=== PATIENT | male | born 1985 | race Caucasian/White ===

== ENCOUNTER 2020-08-25 21:15 | Inpatient (IN) | payer SELFPAY ==
[2020-08-25 21:40] VITALS: BP 125/79; PULSE 72; RESP 14; TEMP 37.1; O2SAT 98; BMI 22.5
--- NOTE | 2020-08-25 21:56 | XR_ITS ---
EXAMINATION: XR CHEST CLINICAL INFORMATION: Bilateral frontal and lower rib pain. COMPARISON: Chest 04/16/2020 TECHNIQUE: Frontal view of the chest was obtained. FINDINGS: The lungs are well-expanded and clear of acute process. Heart size and pulmonary vascularity is normal. No gross bony abnormality seen. IMPRESSION: Unremarkable chest exam. No major change from 04/16/2020
--- NOTE | 2020-08-25 22:01 | ED.GENADULT ---
HPI - General Adult General Chief complaint: Arrhythmia/Palpitations Stated complaint: infection Time Seen by Provider: 08/25/20 21:30 Source: patient Mode of arrival: ambulatory Limitations: no limitations History of Present Illness HPI narrative: patient comes to the emergency room complaining of palpitations. Patient states it has been going on for several months now. Patient also complaining thoracic spine pain for approximately 2 weeks, gradually getting worse. Patient denies any trauma. patient states that 4 months ago patient was hospitalized for bacteremia, an abscess in his arm, patient left AMA. complaint: back pain, palpitations Onset (ago): week(s) Related Data Allergies Allergy/AdvReac Type Severity Reaction Status Date / Time No Known Allergies Allergy Verified 08/25/20 21:53 [No Known Allergies*] Review of Systems Review of Systems: Constitutional : No Weight loss, No Fever, No Chills, No Night Sweats, No Fatigue, No Malaise ENT/Mouth : No Hearing loss, No Ear Pain, No Nasal Congestion, No Sinus Pain, No Hoarseness, No sore throat, No Rhinorrhea, No Swallowing Difficulty Eyes: No Eye Pain, No Swelling, No Redness, No Foreign Body, No Discharge, No Vision Changes Cardiovascular : No Chest Pain, No SOB, No Dyspnea on Exertion, No Orthopnea, No Edema, complaining of intermittent palpitations Respiratory : No Cough, No Sputum, No Wheezing, No Smoke Exposure, No Dyspnea Gastrointestinal : No Nausea, No Vomiting, No Diarrhea, No Constipation, No abdominal Pain, No Hematochezia, No Melena Genitourinary : no irregular bleeding, No Dysuria, No Urinary Frequency, No Hematuria, No Urinary Incontinence, No Urgency, No Flank Pain, No Urinary Flow Changes, No Hesitancy Musculoskeletal : No joint pain, complaining of back pain, No Joint Swelling Skin : No Skin Lesions, No rash Neuro : No Weakness, No Numbness, No Paresthesias, No Loss of Consciousness, No Dizziness, No Headache Psych : No Anxiety/Panic, No Depression, No SI/HI/AH/VH, No Social Issues, Heme/Lymph: No Bruising, No Bleeding,No Lymphadenopathy Endocrine : No Polyuria, No Polydipsia, No Temperature Intolerance PMFSH Past Medical History Medical History Asthma Social History Social History Advance Directives: No Advance Directives Information Provided: No Physical Exam Vital Signs: Vital Signs: Vital Signs Temp Pulse Resp BP Pulse Ox 08/26/20 01:01 51 16 144/91 H 08/25/20 23:56 98.5 F 56 14 133/83 97 08/25/20 21:40 98.8 F 72 14 125/79 98 Body Mass Index 22.5 Appearance: Alert. Oriented X3. No acute distress. anxious, Disheveled Eyes: Pupils equal, round and reactive to light. ENT: Pharynx normal. Neck: Normal inspection. Neck supple. No lymph nodes noted. No crepitus CVS: Normal heart rate and rhythm. Pulses normal. Normal S1 and S2 Respiratory: No respiratory distress. Breath sounds normal. No Wheezing. No rales Abdomen: Soft and nontender. No rigidity. No distention. good BS x4 Skin: Skin warm and dry. Normal skin color. Normal skin turgor. Extremities: No lower extremity edema. No lower extremity edema. No Lacerations. No Rash Back: pain to palpation midline in the thoracic spine Neuro: Oriented X 3. No motor deficit. No sensory deficit. Moving all extermities. No slurred speech. Course Reevaluation(s) Reevaluation #1: patient sleeping, has had complain of pain until now. Medical Decision Making MDM Narrative Medical decision making narrative: I discussed with the patient that he may have diskitis versus osteomyelitis of the thoracic spine. Patient agrees to stay in the hospital. patient's white blood cell count and lactic acid within normal limits, patient is not febrile. At this time sepsis is not suspected EKG: Normal sinus rhythm, heart rate 63, QTC [address] segment elevation of 2 mm in V2 and V3 I discussed the patient with our hospitalist, patient will be admitted. Lab Data Result diagrams: 08/25/20 22:45 08/25/20 22:45 Labs: Lab Results 08/25/20 08/25/20 08/25/20 Range/Units 22:45 22:45 22:45 WBC 5.2 (4.8-10.8) X10*3/uL RBC 3.80 L (4.60-5.80) X10*6/uL Hgb 10.4 L (14.0-18.0) g/dl Hct 32.5 L (42-52) % MCV 85.5 (80-98) fL MCH 27.4 (27.0-33.0) pg MCHC 32.0 (31.0-36.0) g/dl RDW 13.6 (11.0-16.0) % Plt Count 173 (160-400) X10*3/uL MPV 10.3 (9.4-12.4) fL Immature Gran % (Auto) 0.2 (0.0-0.4) % Neut % (Auto) 36.8 L (45-73) % Lymph % (Auto) 46.1 H (20-40) % Slope % (Auto) 13.4 H (2-11) % Eos % (Auto) 3.1 (0-4) % Baso % (Auto) 0.4 (0-2) % Lymph # (Auto) 2.4 (1.2-4.9) X10*3/uL [place] # (Auto) 0.7 (0.1-1.2) X10*3/uL Eos # (Auto) 0.2 (0.0-0.4) X10*3/uL Baso # (Auto) 0.0 (0.0-0.2) X10*3/uL Abs Immat Gran (auto) 0.01 (0.00-0.03) X10*3/uL Absolute Neuts (auto) 1.9 L (2.0-8.3) X10*3/uL Absolute Nucleated RBC 0.000 (0.0-0.012) X10*3/uL Nucleated RBC % (auto) 0.0 (0.0-0.2) /100WBC D-Dimer NG/ML Sodium 141 (135-145) mmol/L Potassium 4.6 (3.3-5.1) mmol/l Chloride 105 (96-108) mmol/L Carbon Dioxide 30 H (22-29) mmol/L Anion Gap 11 L (12-20) BUN 15 (9-16) mg/dL Creatinine 0.82 (0.5-1.4) mg/dL Estim Creat Clear Calc 142.4 Estimated GFR > 60 Random Glucose 105 (60-115) mg/dL Lactic Acid 0.8 (0.5-2.0) mmol/L Calcium 8.4 (8.4-10.2) mg/dL Total Bilirubin 0.3 (0.0-1.0) mg/dL Direct Bilirubin 0.2 (0.0-0.5) mg/dL AST 26 (5-37) U/L ALT 23 (0-40) U/L Alkaline Phosphatase 51 (39-117) U/L Troponin I High Sens (<3.5-35.0) ng/L Total Protein 6.6 (6.5-8.0) g/dL Albumin 3.6 (3.5-5.0) g/dL Urine Opiates Screen (Not Detect) Ur Barbiturates Screen (Not Detect) Ur Phencyclidine Scrn (Not Detect) Ur Amphetamines Screen (Not Detect) U Benzodiazepines Scrn (Not Detect) Urine Cocaine Screen (Not Detect) U Marijuana (THC) Screen (Not Detect) 08/25/20 08/26/20 08/26/20 Range/Units 22:46 00:48 00:48 WBC (4.8-10.8) X10*3/uL RBC (4.60-5.80) X10*6/uL Hgb (14.0-18.0) g/dl Hct (42-52) % MCV (80-98) fL MCH (27.0-33.0) pg MCHC (31.0-36.0) g/dl RDW (11.0-16.0) % Plt Count (160-400) X10*3/uL MPV (9.4-12.4) fL Immature Gran % (Auto) (0.0-0.4) % Neut % (Auto) (45-73) % Lymph % (Auto) (20-40) % Slope % (Auto) (2-11) % Eos % (Auto) (0-4) % Baso % (Auto) (0-2) % Lymph # (Auto) (1.2-4.9) X10*3/uL Slope # (Auto) (0.1-1.2) X10*3/uL Eos # (Auto) (0.0-0.4) X10*3/uL Baso # (Auto) (0.0-0.2) X10*3/uL Abs Immat Gran (auto) (0.00-0.03) X10*3/uL Absolute Neuts (auto) (2.0-8.3) X10*3/uL Absolute Nucleated RBC (0.0-0.012) X10*3/uL Nucleated RBC % (auto) (0.0-0.2) /100WBC D-Dimer 469 NG/ML Sodium (135-145) mmol/L Potassium (3.3-5.1) mmol/l Chloride (96-108) mmol/L Carbon Dioxide (22-29) mmol/L Anion Gap (12-20) BUN (9-16) mg/dL Creatinine (0.5-1.4) mg/dL Estim Creat Clear Calc Estimated GFR Random Glucose (60-115) mg/dL Lactic Acid (0.5-2.0) mmol/L Calcium (8.4-10.2) mg/dL Total Bilirubin (0.0-1.0) mg/dL Direct Bilirubin (0.0-0.5) mg/dL AST (5-37) U/L ALT (0-40) U/L Alkaline Phosphatase (39-117) U/L Troponin I High Sens < 3.5 (<3.5-35.0) ng/L Total Protein (6.5-8.0) g/dL Albumin (3.5-5.0) g/dL Urine Opiates Screen POSITIVE H (Not Detect) Ur Barbiturates Screen Not Detected (Not Detect) Ur Phencyclidine Scrn Not Detected (Not Detect) Ur Amphetamines Screen Not Detected (Not Detect) U Benzodiazepines Scrn Not Detected (Not Detect) Urine Cocaine Screen POSITIVE H (Not Detect) U Marijuana (THC) Screen POSITIVE H (Not Detect) Imaging Data Chest x-ray and thoracic CT scan: Radiologist's impression: chest x-ray: Unremarkable exam CT thoracic spine with IV contrast: There is a rim of abnormal soft tissue density surrounding the T6 and T7 vertebral bodies favoring phlegm is change. Overall appearance is most suspicious for diskitis- osteomyelitis Discharge Plan Discharge Clinical Impression: Discitis of thoracic region Patient Disposition: Admitted As Inpatient
--- NOTE | 2020-08-25 22:02 | ECG_ITS ---
Test Reason : PALPITATIONS Blood Pressure : / mmHG Vent. Rate : 063 BPM Atrial Rate : 063 BPM P-R Int : 140 ms QRS Dur : 102 ms QT Int : 404 ms P-R-T Axes : 053 058 056 degrees QTc Int : 413 ms Normal sinus rhythm RSR' or QR pattern in V1 suggests right ventricular conduction delay Borderline ECG When compared with ECG of 16-APR-2020 15:46, No significant change was found Referred By: Kathi Escalona Electronically Signed By:EVELYN ASHLEY MD
[2020-08-25 22:58] LABS: MANUAL DIFF FLAG NO
[2020-08-25 23:00] LABS: Basophils Percent Auto 0.4 % (0-2); Eosinophils Absolute Auto 0.2 X10*3/uL (0.0-0.4); Eosinophils Percent Auto 3.1 % (0-4); Hematocrit 32.5 % (42-52); Hemoglobin 10.4 g/dl (14.0-18.0); Imm Gran Abs Auto 0.01 X10*3/uL (0.00-0.03); Imm Gran Pct Auto 0.2 % (0.0-0.4); Lymphocytes Absolute Auto 2.4 X10*3/uL (1.2-4.9); Lymphocytes Percent Auto 46.1 % (20-40); Mean Corpuscular Hemoglobin 27.4 pg (27.0-33.0); Mean Corpuscular Volume 85.5 fL (80-98); Mean Platelet Volume 10.3 fL (9.4-12.4); Monocytes Absolute Auto 0.7 X10*3/uL (0.1-1.2); Monocytes Percent Auto 13.4 % (2-11); Neutrophils Absolute Auto 1.9 X10*3/uL (2.0-8.3); Neutrophils Percent Auto 36.8 % (45-73); Platelet Count 173 X10*3/uL (160-400); Red Cell Distribution Width 13.6 % (11.0-16.0); White Blood Count 5.2 X10*3/uL (4.8-10.8)
[2020-08-25 23:17] LABS: Lactic Acid 0.8 mmol/L (0.5-2.0)
[2020-08-25 23:23] LABS: Alanine Aminotransferase 23 U/L (0-40); Albumin Level 3.6 g/dL (3.5-5.0); Alkaline Phosphatase 51 U/L (39-117); Anion Gap 11 (12-20); Aspartate Amino Transferase 26 U/L (5-37); Bilirubin Direct 0.2 mg/dL (0.0-0.5); Bilirubin Total 0.3 mg/dL (0.0-1.0); Blood Urea Nitrogen 15 mg/dL (9-16); Calcium 8.4 mg/dL (8.4-10.2); Carbon Dioxide 30 mmol/L (22-29); Chloride 105 mmol/L (96-108); Creatinine Clr Calc Pharmacy 142.4; Estimated Glomerular Filt Rate > 60; Glucose Random 105 mg/dL (60-115); Potassium 4.6 mmol/l (3.3-5.1); Sodium 141 mmol/L (135-145); Total Protein 6.6 g/dL (6.5-8.0)
[2020-08-25 23:29] LABS: Amphetamine Screen Urine Not Detected (Not Detect); Barbiturates, Urine Not Detected (Not Detect); Benzodiazepines Screen Urine Not Detected (Not Detect); Cannabinoid Screen Urine POSITIVE (Not Detect); Cocaine Screen Urine POSITIVE (Not Detect); Opiate Screen Urine POSITIVE (Not Detect); Phencyclidine Screen Urine Not Detected (Not Detect)
[2020-08-25 23:56] VITALS: BP 133/83; PULSE 56; RESP 14; TEMP 36.9; O2SAT 97
--- NOTE | 2020-08-26 | CT_ITS ---
EXAMINATION: CT THORACIC SPINE CLINICAL INFORMATION: Thoracic spine pain, no trauma, IV drug abuse COMPARISON: Chest x-ray 08/25/2020 TECHNIQUE: 85 mL Omnipaque 350 intravenous contrast was utilized. Multidetector helical imaging was performed through the thoracic spine. Coronal and sagittal reformatted images were created. This CT examination was performed using dose optimization techniques as appropriate, variously including the following: *Automated exposure control *Adjustment of mA and/or kV according to patient size (this includes techniques or standardized protocols for targeted exams where dose is matched to indication/reason for exam; i.e. extremities or head) *Use of iterative reconstruction technique DLP: 511 mGy-cm FINDINGS: There is erosion of the anterior superior endplate of T7 which extends into much of the anterior quarter of the vertebral body and also slightly erodes the left lateral margin. There is mild cortical irregularity of the adjacent inferior endplate of T6. The disc space at this level appears slightly collapsed, and there is a rim of abnormal soft tissue density surrounding the the T6-T7 vertebral bodies favoring phlegmonous change. Overall appearance is most suspicious for discitis-osteomyelitis. There is anatomic alignment of the thoracic vertebral bodies and posterior elements. Remaining vertebral body heights are maintained, with no acute fracture seen. Mild scattered endplate osteophytes are present. IMPRESSION: Findings most suspicious for discitis-osteomyelitis at T6-T7 as described above. Extent of this abnormality would be better evaluated with MRI.
--- NOTE | 2020-08-26 | CT_ITS ---
EXAMINATION: CT CHEST WITHOUT CONTRAST CLINICAL INFORMATION: History of IVDA. Pleuritic pain. Evaluate for septic pulmonary emboli. COMPARISON: Previous chest x-ray from yesterday CT of the thoracic spine from earlier the same day. TECHNIQUE: Multidetector volumetric CT imaging of the chest was done. Axial MIP volume rendering provided. Sagittal and coronal reformatted images were obtained. This CT examination was performed using dose optimization techniques as appropriate, variously including the following: *Automated exposure control *Adjustment of mA and/or kV according to patient size (this includes techniques or standardized protocols for targeted exams where dose is matched to indication/reason for exam; i.e. extremities or head) *Use of iterative reconstruction technique DLP: 154 mGy-cm FINDINGS: SURFACE HYDROLOGIST: Unremarkable LUNGS: The lungs are clear. No pulmonary nodule or airspace disease is seen. MEDIASTINUM: There are small mediastinal lymph nodes. No enlarged lymph nodes are seen. The heart does not appear enlarged. There is no pericardial effusion. The thoracic aorta is normal in caliber. PLEURA: There is no pleural effusion. There is a paravertebral or pleural thickening along the mid thoracic vertebral bodies, T6-T7 and T8. AXILLA: No chest wall mass or enlarged axillary lymph nodes are seen. UPPER ABDOMEN: There is excreted contrast seen in the renal collecting systems. OSSEOUS STRUCTURES: There is a lucency in the anterior superior endplate of the T7 vertebral body. Bony structures are otherwise unremarkable. IMPRESSION: The lungs are clear. No cavitary pulmonary nodules or evidence of pneumonia. Lucency in the anterior superior endplate of the T7 vertebral body and adjacent thickening of the paravertebral soft tissues. Findings are again suggestive of T7 osteomyelitis.
--- NOTE | 2020-08-26 | MR_ITS ---
EXAMINATION: MR THORACIC SPINE WITHOUT AND WITH CONTRAST CLINICAL INFORMATION: Back pain. History of IV drug use. Suspected thoracic spine osteomyelitis. COMPARISON: Previous CT of the thoracic spine from yesterday. TECHNIQUE: MRI of the thoracic spine was obtained using routine sequences with and without contrast. Intravenous contrast: Magnevist 7.5 mL. FINDINGS: Bone alignment is normal. No fracture or dislocation is seen. The thoracic cord is normal in signal. There is abnormal decreased signal on T1 and increased signal on T2-weighted sequences in the inferior T6 and superior T7 vertebral bodies adjacent to the T6-T7 disc space. This demonstrates enhancement post contrast and is suggestive of osteomyelitis. There is minimal abnormal signal in the left anterior T6-T7 disc space which demonstrates increased enhancement suggestive of mild T6-T7 discitis. There is minimal abnormal enhancement posterior to the T6-T7 disc space best appreciated on sagittal T1 postcontrast images. This measures 3 mm in AP dimension and 1 cm in longitudinal dimension sagittal T1 postcontrast image 6 series 8. This is suggestive of phlegmonous change. No definite epidural abscess is seen. There is slight increased paravertebral soft tissue enhancement seen adjacent to the T6 and T7 vertebral bodies, left greater than right, again probably representing phlegmonous change. No paraspinal abscess is seen. There is mild right paracentral disc bulge at T8-T9. No disc herniation is seen. IMPRESSION: T6-T7 discitis and osteomyelitis. Small area of abnormal enhancement posterior to the T6-T7 disc and along the paravertebral soft tissues at the T6 and T7 levels suggestive of phlegmonous change. No evidence of epidural or paraspinal abscess.
[2020-08-26] MEDS: iohexoL 350 MG/ML 100 ML INFUS..BTL 85 ML IV (00:33)
[2020-08-26] MEDS: Aspirin Enteric Coated 325 MG TABLET.DR PO (00:41)
[2020-08-26 01:01] VITALS: BP 144/91; PULSE 51; RESP 16
--- NOTE | 2020-08-26 01:09 | PC.NURSE ---
pt pacing around room at times, points to lower sternum and complaining of chest pain.
[2020-08-26 01:17] LABS: D Dimer 469 NG/ML
[2020-08-26 01:27] LABS: Troponin-I High Sensitivity < 3.5 ng/L (<3.5-35.0)
[2020-08-26] MEDS: Piperacillin Sodium/Tazobactam 3.375 GM in 0.9 % Sodium Chloride 50 ML IV ×4 (02:02→21:39)
[2020-08-26] MEDS: vancomycin HCL 1,000 MG in 0.9 % Sodium Chloride 250 ML 270 MG IV ×3 (02:34→21:03)
--- NOTE | 2020-08-26 02:56 | P.HPIM_ITS ---
History of Present Illness Date of Service: 08/26/20 Chief Complaint: back pain 35 y/o male with known hx of IVDA, Asthma and schizophrenia who presented from home due to back pain. Per patient's hx several months ago he was hospitalized due to right arm abscess with bacteremia but patient left AMA after 1-2 days been treated with antbx. Reports that 2 weeks ago started presenting with occaional episodes of chill and a constant mid back pain, sharp like, 10/10 in intensity, radiating to the chest, not associated with weakness, numbness, bladder or bowel incontinence. Patient has a significant hx of Marijuana abuse, Opiate abuse and Cocaine abuse, Last time of use was hrs before arrival. On evaluation in the ED on presentation patient was hemodynamially stable, c/o mid back discomfort. CT thoracic spine done showed suspected evidece of diskitis- osteomyelitis in T5-6 per radiology report recommending to obtain MRI for further evaluation. Patient was started on IV vanco and Zosyn for brodspectrum coverage. Decision for admission given. Patient seen and examined at the bedside, ROS as a above otherwise negative. Physical exam positive for mid back tenderness on palpation, no numbness or weakness on bilateral LE. PMHX: IV drug abuse, asthma, schizophrenia PSx: knee surgery Toxic habits: Multisubstance abuse, no hx of alcohol abuse or smoking tobacco Review of Systems Musculoskeletal: Musculoskeletal: Reports back pain PMFSH Medical History Asthma Functional capacity: independent ambulation Family history: reviewed and not pertinent Social History Advance Directives: No Advance Directives Information Provided: No Meds Allergies Allergy/AdvReac Type Severity Reaction Status Date / Time No Known Allergies Allergy Verified 08/25/20 21:53 [No Known Allergies*] Home Medications Medication Instructions Recorded Confirmed Type No Known Home Meds 08/26/20 08/26/20 History Physical Exam Vital Signs and Narrative: Vital Signs: Last Vital Signs Temp 98.5 F 08/25/20 23:56 Pulse 51 08/26/20 01:01 Resp 16 08/26/20 01:01 BP 144/91 H 08/26/20 01:01 Pulse Ox 97 08/25/20 23:56 Body Mass Index 22.5 Const: General: cooperative and other (in mild discomfort) Orientation/consciousness: patient oriented x3 HENMT: Head: Yes normal to inspection Eyes: General: appearance normal, both eyes and all related structures Neck: Yes normal visual inspection Chest: Chest palpation & inspection: normal inspection of the chest Resp: Effort & Inspection: normal respiratory effort Cardio: Jugular venous distension: no JVD Rate: regular rate Rhythm: regular rhythm Heart sounds: S1 normal heart sound present and S2 normal heart sound present GI: Inspection: Yes normal to inspection Back/Spine/Pelvis: Back: other (mid back tenderness on palpation ) Skin: General skin exam: no rashes or lesions noted Neuro: General: patient oriented x3 Motor exam (neuro): 5/5 motor strength present throughout Sensory Exam: other (sensation preserved) Extrem: Left upper extremity: normal to inspection Psych: Appearance: grossly normal Results Labs Labs: Laboratory Tests 08/25/20 08/25/20 08/25/20 22:45 22:45 22:45 WBC 5.2 RBC 3.80 L Hgb 10.4 L Hct 32.5 L MCV 85.5 MCH 27.4 MCHC 32.0 RDW 13.6 Plt Count 173 MPV 10.3 Immature Gran % (Auto) 0.2 Neut % (Auto) 36.8 L Lymph % (Auto) 46.[address] [place] % (Auto) 13.4 H Eos % (Auto) 3.1 Baso % (Auto) 0.4 Lymph # (Auto) 2.4 [place] # (Auto) 0.7 Eos # (Auto) 0.2 Baso # (Auto) 0.0 Abs Immat Gran (auto) 0.01 Absolute Neuts (auto) 1.9 L Absolute Nucleated RBC 0.000 Nucleated RBC % (auto) 0.0 D-Dimer Sodium 141 Potassium 4.6 Chloride 105 Carbon Dioxide 30 H Anion Gap 11 L BUN 15 Creatinine 0.82 Estim Creat Clear Calc 142.4 Estimated GFR > 60 Random Glucose 105 Lactic Acid 0.8 Calcium 8.4 Total Bilirubin 0.3 Direct Bilirubin 0.2 AST 26 ALT 23 Alkaline Phosphatase 51 Troponin I High Sens Total Protein 6.6 Albumin 3.6 Urine Opiates Screen Ur Barbiturates Screen Ur Phencyclidine Scrn Ur Amphetamines Screen U Benzodiazepines Scrn Urine Cocaine Screen U Marijuana (THC) Screen 10/08/26/20 08/26/20 22:46 00:48 00:48 WBC RBC Hgb Hct MCV MCH MCHC RDW Plt Count MPV Immature Gran % (Auto) Neut % (Auto) Lymph % (Auto) [place] % (Auto) Eos % (Auto) Baso % (Auto) Lymph # (Auto) [place] # (Auto) Eos # (Auto) Baso # (Auto) Abs Immat Gran (auto) Absolute Neuts (auto) Absolute Nucleated RBC Nucleated RBC % (auto) D-Dimer 469 Sodium Potassium Chloride Carbon Dioxide Anion Gap BUN Creatinine Estim Creat Clear Calc Estimated GFR Random Glucose Lactic Acid Calcium Total Bilirubin Direct Bilirubin AST ALT Alkaline Phosphatase Troponin I High Sens < 3.5 Total Protein Albumin Urine Opiates Screen POSITIVE H Ur Barbiturates Screen Not Detected Ur Phencyclidine Scrn Not Detected Ur Amphetamines Screen Not Detected U Benzodiazepines Scrn Not Detected Urine Cocaine Screen POSITIVE H U Marijuana (THC) Screen POSITIVE H Assessment and Plan (1) Osteomyelitis of thoracic spine: Status: Acute (2) IV drug abuse: Status: Acute CT thoracic spine concerning for discitis vs OM around T5-6 Follow up MRI in the am Follow up Bcx obtained in the ED Continue with IV Vanco and Zosyn for gram positive and gram negative coverage Follow up Vanco trough as ordered Pain control Follow up 2D echo Infectious disease consult in the am
[2020-08-26] MEDS: Ketorolac Tromethamine 15 MG/ML VIAL IVPUSH (03:36)
--- NOTE | 2020-08-26 03:37 | PC.NURSE ---
PT ABLE TO FALL ASLEEP. REPORT GIVEN TO RN ON FLOOR. READY FOR TRANSPORT.
[2020-08-26] MEDS: 0.9 % Sodium Chloride 1,000 ML 100 ML IVCONT ×2 (04:02→18:16)
[2020-08-26] MEDS: Heparin Sodium,Porcine 5,000 UNIT/ML VIAL 5000 UNIT SUBCUT (06:13)
[2020-08-26 06:43] LABS: SARS COV2 PCR INHOUSE NEGATIVE (Negative)
[2020-08-26 07:57] VITALS: BP 146/83; PULSE 53; RESP 16; TEMP 36.4; O2SAT 100
[2020-08-26 09:27] LABS: MANUAL DIFF FLAG NO
[2020-08-26 09:45] LABS: Basophils Percent Auto 0.2 % (0-2); Eosinophils Absolute Auto 0.1 X10*3/uL (0.0-0.4); Eosinophils Percent Auto 2.6 % (0-4); Hematocrit 36.9 % (42-52); Hemoglobin 11.6 g/dl (14.0-18.0); Imm Gran Abs Auto 0.01 X10*3/uL (0.00-0.03); Imm Gran Pct Auto 0.2 % (0.0-0.4); Lymphocytes Percent Auto 43.2 % (20-40); Mean Corpuscular HGB Conc 31.4 g/dl (31.0-36.0); Mean Corpuscular Hemoglobin 26.7 pg (27.0-33.0); Mean Corpuscular Volume 84.8 fL (80-98); Mean Platelet Volume 9.9 fL (9.4-12.4); Monocytes Absolute Auto 0.4 X10*3/uL (0.1-1.2); Monocytes Percent Auto 9.5 % (2-11); Neutrophils Absolute Auto 2.1 X10*3/uL (2.0-8.3); Neutrophils Percent Auto 44.3 % (45-73); Platelet Count 153 X10*3/uL (160-400); Red Blood Count 4.35 X10*6/uL (4.60-5.80); Red Cell Distribution Width 13.4 % (11.0-16.0); White Blood Count 4.6 X10*3/uL (4.8-10.8)
--- NOTE | 2020-08-26 10:00 | CA_ITS ---
Transthoracic Echocardiogram Patient (Last, First, Middle): Dre Butler, Gender: Male Date of : 1985 Age: 35 Procedure Date: 08/26/2020 Procedure Type: Transthoracic Echocardiogram Location: S3 Height: 187.96 cm Weight: 81.65 kg BSA: 2.08 m2 Heart Rate: bpm BP: 143 / 83 mmHg Certified Flight Instructor: LARRY Devi MD: Chalino Mchugh MD Symptoms: r/o endocarditis Conclusions: - Normal left ventricular size and systolic function. - Diastolic function is normal for age. - Normal right ventricular cavity size and systolic function. - 0.3 x 0.4 cm calcified nodule noticed on the noncoronary cusp of the aortic valve. Not a vegetation. - No obvious vegetation noticed on any valve. - Consider a VICK if clinically appropriate. Findings Left Ventricle Normal left ventricular size and systolic function. There is mildly increased left ventricular wall thickness. The visually estimated ejection fraction is between 60-65%. There is no evidence of regional wall motion abnormalities. Diastolic function is normal for age. Right Ventricle Normal right ventricular cavity size and systolic function. Atria The left atrium is mildly dilated. There is no evidence of interatrial shunt by color Doppler. The right atrium is normal in size. Prominent Chiari network noticed. Aortic Valve There is a normal trileaflet aortic valve. There is no aortic valve stenosis. There is no aortic valve regurgitation. 0.3 x 0.4 cm calcified nodule noticed on the noncoronary cusp of the aortic valve. Mitral Valve Normal mitral valve structure and function. There is trace mitral valve regurgitation. There is no mitral valve stenosis. Pulmonic Valve The pulmonic valve is normal. There is trace pulmonic valve regurgitation. Tricuspid Valve Normal tricuspid valve structure. There is trace tricuspid valve regurgitation. Low right atrial pressure. There is no evidence of pulmonary hypertension. Great Vessels All visible segments of the aorta are normal in size. The visualized portions of the pulmonary artery and branches are normal. Venous The inferior vena cava is dilated and collapses greater than 50% with inspiration. Pericardium/Pleural There is no evidence of pericardial effusion. Prior Study Comparison No prior study available for comparison. Recommendations, Care & Conclusions Consider a VICK if clinically appropriate. Measurements 2D Linear Measurements RVIDd: 3.61 RVIDd Index: 1.74 IVSd: 1.18 0.6-0.9/0.6-1.0 cm LVIDd: 5.91 3.9-5.3/4.2-5.9 cm LVIDd Index: 2.84 2.4-3.2/2.2-3.1 cm/m2 LVIDs: 3.86 2.0-3.6 cm LVPWd: 1.14 0.7-1.1 cm Ao Root: 3.10 2.1-3.5 cm LA Diam: 3.70 2.7-3.8/3.0-4.0 cm LAIDs Index: 1.78 1.5-2.3 cm/m2 LV Mass: 365.06 67-162/88-224 g LV Mass Index: 175.51 43-95/49-115 g/m2 LVOT Diam: 2.40 3.0+(-)1.3 cm 2D Systolic Function EF 4C: 72.00 >55% EF 2C: 69.10 >55% EF BiP: 70.20 >55% Mitral Valve MV Pk E: 0.56 MV PK A: 0.37 MV Decel Time: 554.00 E/A: 1.50 E'Lateral: 12.30 E'Medial: 8.59 E/E' Med: 6.50 E/E' Lat: 4.50 PHT: 162.00 MVA PHT: 1.36 Decel Carroll: 1.01 Aortic Valve AoV Pk Pratik: 1.59 AoV Mn Pratik: 1.23 AoV VTI: 0.32 AoV Pk Grad: 10.00 Aov Mn Grad: 7.00 BEVERLEY Cont.VTI: 2.43 LVOT LVOT Pk Pratik: 1.06 LVOT Mn Pratik: 0.58 LVOT VTI: 0.17 LVOT Pk Grad: 4.00 LVOT Mn Grad: 2.00 LVOT Diam: 2.40 LVOT Area: 4.52 Diastolic Function MV Pk E: 0.56 MV Pk A: 0.37 E/A: 1.50 E'Medial: 8.59 E/E' Med: 6.50 E' Laterial: 12.30 E/E' Lat: 4.50 Tricuspid Valve TR Pk Pratik: 2.47 TR Pk Grad: 24.00 RA Press: 8.00 RVSP: 32.00 Great Vessels Aorta Ao Root-2D: 3.10 2.0-3.7 cm Ao Asc: 3.00 2.1-3.4 cm Ao Arch: 3.30 Updated in Other Vendor System with Status of Final Morgan Morris MD electronically signed on 08/26/2020 3:16:17 PM with status of Final
[2020-08-26 10:05] LABS: Anion Gap 10 (12-20); Blood Urea Nitrogen 12 mg/dL (9-16); Calcium 8.3 mg/dL (8.4-10.2); Carbon Dioxide 26 mmol/L (22-29); Chloride 107 mmol/L (96-108); Creatinine Clr Calc Pharmacy 147.8; Estimated Glomerular Filt Rate > 60; Glucose Random 146 mg/dL (60-115); Potassium 4.1 mmol/l (3.3-5.1); Sodium 139 mmol/L (135-145)
[2020-08-26] MEDS: HYDROmorphone HCl 0.5 MG/0.5 ML SYRINGE IVPUSH ×4 (11:00→22:40)
--- NOTE | 2020-08-26 11:36 | MHC.CM.PN ---
met with pt who is homeless per rounds pt may need 6 weeks iv antibiotics ,referralmade to fredy counselor for [facility] pt is an active ivda ,pic[facility] placement posible at the end of the week
[2020-08-26 13:44] VITALS: BP 125/73; PULSE 51; RESP 17; TEMP 37.1; O2SAT 99
--- NOTE | 2020-08-26 13:50 | MHC.CARE ---
Addiction Consult Service note: This copy writer met with the 35 year old Moldovan speaking male in bed 379[address]1 of [address] to discuss substance use. Patient reports using heroin, cocaine and marijuana. Patient reports a desire to stop using heroin entirely, however states that not having insurances has been a barrier to his recovery. This copy writer discussed MAT with patient and patient is interested in getting started on Suboxone before he leaves the hospital. Patient is currently uninsured, however [facility] he will be able to get Suboxone prescribed through outpatient clinics. This copy writer educated patient on the CCC and explained that I would schedule patient an appointment time when we have a clearer idea of when he will be discharging and what the discharge plan will be. Patient expressed concerns related to precipitated withdrawal due to him receiving pain medication while in the hospital. This copy writer explained to patient that we would monitor his withdrawal and use the COWS scale to ensure that he does not have to experience precipitated withdrawal. Patient acknowledged. This copy writer also discussed outpatient therapy with patient and explained that he will be referred to this form of support through the MAT clinic. Patient acknowledged and reports no additional questions at this time.
[2020-08-26] MEDS: 0.9 % Sodium Chloride Flush 3 ML SYRINGE IVFLUSH (15:24)
[2020-08-26 15:27] VITALS: BP 117/68; PULSE 50; RESP 20; TEMP 37; O2SAT 99
--- NOTE | 2020-08-26 15:55 | MHC.CM.PN ---
attempted to fax referral to financial counselor ondina knight to request a follow up for [facility] pt will need 6 weeks iv antibiotics fax was unable to be complered used several different fax machines sent email with same request additionally a vm was left as well
--- NOTE | 2020-08-26 17:52 | P.PNIM_ITS ---
Subjective Subjective Date of Service: 08/26/20 Interval History: seen and examined this AM reports withdrawal symptoms denies any weakness/numbness no bladder/bowel Incontinence /retention Review of Systems General - no fevers or chills Cardiovascular - no chest pain Respiratory - no shortness of breath or cough Abdominal- no abdominal pain, nausea, vomiting, diarrhea neuro - no weakness, numbness Physical Exam Vital Signs: Vital Signs: Vital Signs Temp Pulse Resp BP Pulse Ox 08/26/20 15:27 98.6 F 50 20 117/68 99 08/26/20 13:44 98.8 F 51 17 125/73 99 08/26/20 07:57 97.6 F 53 16 146/83 H 100 08/26/20 01:01 51 16 144/91 H 08/25/20 23:56 98.5 F 56 14 133/83 97 08/25/20 21:40 98.8 F 72 14 125/79 98 Body Mass Index 22.5 General - no acute distress, appears comfortable Cardiovascular - regular rate and rhythm, S1-S2 Lungs - normal respiratory effort, clear to auscultation bilaterally, no wheezin g Abdomen - soft, nontender, no rebound regarding Extremities - no edema bilaterally Neuro - awake and alert, b/l LE strength 5/5; no sensory deficits appreciated in the LE as well as abdominal / chest region Objective Data Current Medications Generic Name Dose Route Start Last Admin Trade Name Freq PRN Reason Stop Dose Admin Heparin Sodium (Porcine) 5,000 unit 08/26/20 06:00 08/26/20 13:45 Heparin Sodium,Porcine 5,000 Unit/Ml Vial SUBCUT Not Given Q8H GEMA Hydromorphone HCl 0.5 mg 08/26/20 10:52 08/26/20 13:44 Hydromorphone Hcl 0.5 Mg/0.5 Ml Syringe IVPUSH 0.5 mg Q4H PRN Administration Pain, Severe (Pain Scale 7-10) Sodium Chloride 1,000 mls @ 100 mls/hr 08/26/20 03:44 08/26/20 13:50 Ns IVCONT Not Given .Q10H GEMA Vancomycin HCl 1,000 mg/ 270 mls @ 270 mls/hr 08/26/20 11:00 08/26/20 15:00 Sodium Chloride IV Infused Q8H GEMA Infusion Piperacillin Sod/Tazobactam 50 mls @ 100 mls/hr 08/26/20 08:00 08/26/20 16:00 Sod 3.375 gm/ Sodium Chloride IV Infused Q6H GEMA Infusion Sodium Chloride 3 ml 08/26/20 08:00 08/26/20 15:24 0.9 % Sodium Chloride Flush 3 Ml Syringe IVFLUSH 3 ml QSHIFT GEMA Administration Labs CBC & Chem 7: 08/26/20 09:21 08/26/20 09:21 Assessment and Plan (1) Osteomyelitis of thoracic spine: Status: Acute (2) Discitis of thoracic region: Status: Acute Assessment and Plan: 35 yo M with history of IVDU who is admitted for back pain secondary to osteomyelitis/discitis of the thoracic spine at T6/T7 1. Osteomyelitis / discitis T6/T7 no evidence of epidural / paraspinal abscess continue broad spectrum antibiotics f/u cultures ID consult neuro checks 2. Opiate use disorder, polysubstance abuse in acute pain, will give IV dialudid to control is interested in MAT -- will consult addiction med as his pain improves cessation as been encouraged Full Code DVT pptx, heparin
[2020-08-26 20:03] VITALS: BP 152/94; PULSE 52; RESP 18; TEMP 36.2; O2SAT 98
[2020-08-27 00:30] VITALS: BP 137/64; PULSE 61; RESP 18; TEMP 37.1; O2SAT 97
[2020-08-27 02:59] LABS: Vancomycin Trough 11.1 mcg/mL (10.0-20.0)
[2020-08-27] MEDS: vancomycin HCL 1,000 MG in 0.9 % Sodium Chloride 250 ML 270 MG IV (04:01)
[2020-08-27] MEDS: Piperacillin Sodium/Tazobactam 3.375 GM in 0.9 % Sodium Chloride 50 ML IV ×2 (04:01→09:47)
[2020-08-27 04:29] VITALS: BP 125/68; PULSE 52; RESP 18; TEMP 37.1; O2SAT 99
[2020-08-27] MEDS: HYDROmorphone HCl 0.5 MG/0.5 ML SYRINGE IVPUSH (04:36)
[2020-08-27 06:28] LABS: MANUAL DIFF FLAG NO
[2020-08-27 06:44] LABS: Basophils Percent Auto 0.3 % (0-2); Eosinophils Percent Auto 0.3 % (0-4); Hematocrit 36.5 % (42-52); Imm Gran Abs Auto 0.02 X10*3/uL (0.00-0.03); Imm Gran Pct Auto 0.3 % (0.0-0.4); Lymphocytes Absolute Auto 2.4 X10*3/uL (1.2-4.9); Lymphocytes Percent Auto 35.7 % (20-40); Mean Corpuscular HGB Conc 32.9 g/dl (31.0-36.0); Mean Corpuscular Hemoglobin 26.8 pg (27.0-33.0); Mean Corpuscular Volume 81.7 fL (80-98); Mean Platelet Volume 10.3 fL (9.4-12.4); Monocytes Absolute Auto 0.5 X10*3/uL (0.1-1.2); Monocytes Percent Auto 7.3 % (2-11); Neutrophils Absolute Auto 3.8 X10*3/uL (2.0-8.3); Neutrophils Percent Auto 56.1 % (45-73); Platelet Count 197 X10*3/uL (160-400); Red Blood Count 4.47 X10*6/uL (4.60-5.80); Red Cell Distribution Width 13.4 % (11.0-16.0); White Blood Count 6.8 X10*3/uL (4.8-10.8)
[2020-08-27 07:22] VITALS: BP 126/61; PULSE 51; RESP 17; TEMP 37.1; O2SAT 99
[2020-08-27 07:33] LABS: Glucose Urine UA NEG (NEG); Leukocyte Esterase Urine NEG (NEG); Nitrite Urine NEG (NEG); Specific Gravity - Urine 1.025 (1.005-1.025); Urine Blood NEG (NEG); Urine Ketones NEG (NEG); Urine Protein NEG (NEG-TRACE)
[2020-08-27 07:37] LABS: Appearance Urine CLEAR; Color Urine YELLOW; UACC Culture Trigger NO
[2020-08-27 07:45] LABS: Anion Gap 15 (12-20); Blood Urea Nitrogen 12 mg/dL (9-16); Calcium 8.9 mg/dL (8.4-10.2); Carbon Dioxide 21 mmol/L (22-29); Chloride 109 mmol/L (96-108); Creatinine Clr Calc Pharmacy 157.8; Estimated Glomerular Filt Rate > 60; Glucose Random 124 mg/dL (60-115); Potassium 3.9 mmol/l (3.3-5.1); Sodium 141 mmol/L (135-145)
[2020-08-27 11:03] LABS: Vancomycin Trough 11.2 mcg/mL (10.0-20.0)
--- NOTE | 2020-08-27 11:43 | PC.NURSE ---
pt discharged ama at 1115. iv was removed. Risk of leaving explained by dr Beltran. pt escorted to [facility] for belongings
--- NOTE | 2020-08-27 12:54 | PM.EVENT ---
Event Note Event Note: AMA note Patient seen and examined. Reported he wanted to leave against medical advice. Explained to the patients the risk of leaving AMA, which include but are not limited to the following: worsening of his infection and spread to other body parts, worsening of his infection leading to paralysis and worsening of his infection ultimately leading to . I offered him MAT for his withdrawal -- both methadone / suboxone, both of which he refused. I offered consultation with addiction medicine, which he refused. He was able to express the risks of leaving AMA back to me. He is AAOx3 and competant to make this decision at this time. He has been encouraged to return to the hospital should he change his mind.
--- NOTE | 2020-08-27 12:58 | PM.EVENT ---
Event Note Event Note: Discharge diagnosis: 1. Osteomyelitis / Discitis of the throacic spine 2. Polysubstance abuse
== END 2020-08-27 11:15 | disposition left against medical advice (07) | DRG 552 ==
LOC: HO.ED 08-26 01:46 → HO.S3 08-26 03:01
PROVIDERS: Admitting Provider Internal Medicine; Emergency Provider Emergency Medicine; Visit Provider Family Medicine
DX: M46.44 Discitis, unspecified, thoracic region (principal); M46.24 Osteomyelitis of vertebra, thoracic region; Z20.828 Contact with and (suspected) exposure to other viral communicable diseases; F19.10 Other psychoactive substance abuse, uncomplicated
CPT/HCPCS: 36415; 71045; 71250; 72129; 72157; 80048; 80076; 80202; 80307; 81003; 83605; 84484; 85025; 85379; 87040; 87635; 93005; 93306; 96365; 99285; J1170; J1885

== ENCOUNTER 2020-09-10 22:32 | Inpatient (IN) | payer MEDICAID, SELFPAY ==
[2020-09-10 22:34] VITALS: BP 128/71; PULSE 98; RESP 16; TEMP 36.8; O2SAT 97; BMI 23.7
--- NOTE | 2020-09-10 23:44 | ED.BACK ---
HPI - Back Pain/Injury General Chief Complaint: Back Pain/Injury Stated Complaint: Back pain Time Seen by Provider: 09/10/20 23:38 Source: patient Mode of arrival: ambulatory Limitations: no limitations History of Present Illness HPI Narrative: 35-year-old male with past medical history of osteomyelitis of the thoracic spine, IV drug abuse, homelessness presents with increased mid back pain. He stated that he was diagnosed with osteomyelitis and diskitis of the thoracic spine 2 weeks ago and left against medical advice. He does report having history of leaving against medical advice but he presents today because the pain has increased and he is unable to get comfortable. He also reports chest pain on deep inspiration. he Stopped using injectable drugs several days ago and has resorted to snorting Heroin. He does not describe any symptoms indicating cauda equina, fevers, chills, abdominal pain, abdominal distention, dysuria, hematuria, chest pressure and palpitations. MD elicited complaint: back pain Pertinent past history: IV drug use Onset (ago): week(s) Timing: constant Severity: severe Similar Symptoms Previously: Yes Quality: aching and throbbing Location: thoracic spine Radiation: chest Exacerbating factors: movement Relieving factors: none Associated symptoms: denies other symptoms Work related injury: No Related Data Home Medications Medication Instructions Recorded Confirmed No Known Home Meds 08/26/20 08/26/20 Allergies Allergy/AdvReac Type Severity Reaction Status Date / Time No Known Allergies Allergy Verified 08/25/20 21:53 [No Known Allergies*] Review of Systems Review of Systems: Constitutional: No Weight loss, No Fever, No Chills, ENT/Mouth: No Hearing loss, No Ear Pain, No Nasal Congestion, No Sinus Pain, No Hoarseness, No sore throat, No Rhinorrhea, No Swallowing Difficulty Cardiovascular: positive Chest Pain, No SOB Respiratory: No Cough, No Dyspnea Gastrointestinal: No Nausea, No Vomiting, No Diarrhea, No abdominal Pain, No Hematochezia, No Melena Genitourinary: No Dysuria, No Urinary Frequency, No Hematuria, No Urinary Incontinence, Musculoskeletal: positive back pain Skin: No Skin Lesions, No rash Neuro: No Weakness, No Numbness, No Paresthesias, no loss of bowel or bladder incontinence, no saddle anesthesia PMF Past Medical History Attestation statement: The following information was validated with the patient. Source: old records reviewed Medical History Asthma Social History Social History Housing: Homeless Alcohol intake: never Smoking Status: Current every day smoker Tobacco Type: Cigarette Second Hand Smoke Exposure: Yes Use of substances other than those prescribed or required for medical reasons: Yes Substance Use Type: Heroin Substance Use Frequency: Daily Last Used Substance: Just Prior to Admission Any prior treatment program specific to substance use: No Advance Directives: No service: No Physical Exam Vital Signs: Vital Signs: Vital Signs Temp Pulse Resp BP Pulse Ox 09/11/20 01:33 84 15 100/52 L 98 09/10/20 23:51 98.4 F 74 16 107/67 98 09/10/20 22:34 98.2 F 98 16 128/71 97 Body Mass Index 23.7 Appearance: Alert. Oriented X3. moderate distress. Head: Normal external exam. Normocephalic. Atraumatic. No Brady signs noted. No raccoon eyes noted Eyes: PERRLA. EOMI. Conjunctiva and sclera normal. Eyelids normal. ENT: TM's Normal. Pharynx normal. Uvula midline. Moist mucous membranes. No trismus noted. No drooling noted. No muffled voice noted. Neck: Normal inspection. Neck supple. No adenopathy. No meningeal signs. No neck mass noted. CVS: Normal heart rate and rhythm. Heart sound normal. No murmurs noted. Pulses equal to all extremities. Respiratory: No respiratory distress. Painless inspiration. Breath sounds normal. No wheezes/rales/rhonchi noted. Chest nontender. No accessory muscle usage noted or decreased air movement noted. Abdomen: Soft and nontender. Bowel sounds normal in all 4 quadrants. No distention noted. No organomegaly noted. No visible injury noted. Back: positive thoracic vertebral pain, No CVA tenderness. Full range of motion noted. Skin: Skin warm and dry. Normal skin color. Normal skin turgor. No rashes/lesions/lacerations noted. Extremities: No lower extremity edema. Extremities exhibit normal range of motion. Extremities nontender. Neuro: cranial nerves 2-12 intact, no focal neural deficits, strength 5/5 to all extremities, No motor deficit. No sensory deficit. Reflexes normal. negative Kernig's, negative Brudzinski. Course Course Course Narrative: 35-year-old male with known osteomyelitis and diskitis, left AMA 2 weeks ago without completion of IV antibiotics. We will repeat CT scan and include the chest as he is now describing pain on inspiration. We will rule out PE, osteomyelitis, sepsis. he appears nontoxic at this time, vital signs are hemodynamically stable, heart rate 98, temperature 98.2? oral. we will start IV antibiotics Zosyn and vancomycin as he does have known osteomyelitis. He has had several admissions and has left against medical advice multiple times. CTA and CT of thoracic spine pending. Plan is to admit for osteomyelitis. This case was already discussed with Dr. Jordin Mchugh. Report to Dr. Mishra . Consultations Consultation #1: Jordin Mchugh Time: 01:15 MDM - Back Pain/Injury MDM Narrative Medical decision making narrative: patient had an MRI and CT scan on 08/26 which showed thoracic osteomyelitis and diskitis. He did leave against medical advice did not complete IV antibiotics as advised and prescribed. Is highly unlikely that this resolved on its own, will repeat CT scan with PE study. Differential Diagnosis Differential diagnosis: Likely discitis Medical Records Attestation: I reviewed the patient's medical records. Lab Data Attestation: I reviewed the patient's lab results. Result diagrams: 09/11/20 00:09 09/11/20 00:08 Labs: Lab Results 09/11/20 09/11/20 09/11/20 Range/Units 00:08 00:08 00:09 WBC (4.8-10.8) X10*3/uL RBC (4.60-5.80) X10*6/uL Hgb (14.0-18.0) g/dl Hct (42-52) % MCV (80-98) fL MCH (27.0-33.0) pg MCHC (31.0-36.0) g/dl RDW (11.0-16.0) % Plt Count (160-400) X10*3/uL MPV (9.4-12.4) fL Immature Gran % (Auto) (0.0-0.4) % Neut % (Auto) (45-73) % Lymph % (Auto) (20-40) % [place] % (Auto) (2-11) % Eos % (Auto) (0-4) % Baso % (Auto) (0-2) % Lymph # (Auto) (1.2-4.9) X10*3/uL [place] # (Auto) (0.1-1.2) X10*3/uL Eos # (Auto) (0.0-0.4) X10*3/uL Baso # (Auto) (0.0-0.2) X10*3/uL Abs Immat Gran (auto) (0.00-0.03) X10*3/uL Absolute Neuts (auto) (2.0-8.3) X10*3/uL Absolute Nucleated RBC (0.0-0.012) X10*3/uL Nucleated RBC % (auto) (0.0-0.2) /100WBC PT (10.8-13.0) SEC INR (0.9-1.1) APTT (24.1-38.0) SEC Sodium 134 L (135-145) mmol/L Potassium 4.9 D (3.3-5.1) mmol/l Chloride 100 (96-108) mmol/L Carbon Dioxide 28 (22-29) mmol/L Anion Gap 11 L (12-20) BUN 24 H D (9-16) mg/dL Creatinine 0.79 (0.5-1.4) mg/dL Estim Creat Clear Calc 148.8 Estimated GFR > 60 Random Glucose 84 (60-115) mg/dL Lactic Acid 0.4 L (0.5-2.0) mmol/L Calcium 8.7 (8.4-10.2) mg/dL Magnesium 2.0 (1.6-2.6) mg/dL Urine Opiates Screen (Not Detect) Ur Barbiturates Screen (Not Detect) Ur Phencyclidine Scrn (Not Detect) Ur Amphetamines Screen (Not Detect) U Benzodiazepines Scrn (Not Detect) Urine Cocaine Screen (Not Detect) U Marijuana (THC) Screen (Not Detect) Coronavirus (PCR) (Negative) 09/11/20 09/11/20 09/11/20 Range/Units 00:09 00:09 00:09 WBC 6.3 (4.8-10.8) X10*3/uL RBC 4.17 L (4.60-5.80) X10*6/uL Hgb 11.4 L (14.0-18.0) g/dl Hct 35.1 L (42-52) % MCV 84.2 (80-98) fL MCH 27.3 (27.0-33.0) pg MCHC 32.5 (31.0-36.0) g/dl RDW 13.7 (11.0-16.0) % Plt Count 201 (160-400) X10*3/uL MPV 10.0 (9.4-12.4) fL Immature Gran % (Auto) 0.2 (0.0-0.4) % Neut % (Auto) 41.6 L (45-73) % Lymph % (Auto) 46.9 H (20-40) % [place] % (Auto) 9.4 (2-11) % Eos % (Auto) 1.4 (0-4) % Baso % (Auto) 0.5 (0-2) % Lymph # (Auto) 3.0 (1.2-4.9) X10*3/uL [place] # (Auto) 0.6 (0.1-1.2) X10*3/uL Eos # (Auto) 0.1 (0.0-0.4) X10*3/uL Baso # (Auto) 0.0 (0.0-0.2) X10*3/uL Abs Immat Gran (auto) 0.01 (0.00-0.03) X10*3/uL Absolute Neuts (auto) 2.6 (2.0-8.3) X10*3/uL Absolute Nucleated RBC 0.000 (0.0-0.012) X10*3/uL Nucleated RBC % (auto) 0.0 (0.0-0.2) /100WBC PT 11.3 (10.8-13.0) SEC INR 1.0 (0.9-1.1) APTT 36.1 (24.1-38.0) SEC Sodium (135-145) mmol/L Potassium (3.3-5.1) mmol/l Chloride (96-108) mmol/L Carbon Dioxide (22-29) mmol/L Anion Gap (12-20) BUN (9-16) mg/dL Creatinine (0.5-1.4) mg/dL Estim Creat Clear Calc Estimated GFR Random Glucose (60-115) mg/dL Lactic Acid (0.5-2.0) mmol/L Calcium (8.4-10.2) mg/dL Magnesium (1.6-2.6) mg/dL Urine Opiates Screen (Not Detect) Ur Barbiturates Screen (Not Detect) Ur Phencyclidine Scrn (Not Detect) Ur Amphetamines Screen (Not Detect) U Benzodiazepines Scrn (Not Detect) Urine Cocaine Screen (Not Detect) U Marijuana (THC) Screen (Not Detect) Coronavirus (PCR) NEGATIVE (Negative) 09/11/20 Range/Units 00:09 WBC (4.8-10.8) X10*3/uL RBC (4.60-5.80) X10*6/uL Hgb (14.0-18.0) g/dl Hct (42-52) % MCV (80-98) fL MCH (27.0-33.0) pg MCHC (31.0-36.0) g/dl RDW (11.0-16.0) % Plt Count (160-400) X10*3/uL MPV (9.4-12.4) fL Immature Gran % (Auto) (0.0-0.4) % Neut % (Auto) (45-73) % Lymph % (Auto) (20-40) % [place] % (Auto) (2-11) % Eos % (Auto) (0-4) % Baso % (Auto) (0-2) % Lymph # (Auto) (1.2-4.9) X10*3/uL [place] # (Auto) (0.1-1.2) X10*3/uL Eos # (Auto) (0.0-0.4) X10*3/uL Baso # (Auto) (0.0-0.2) X10*3/uL Abs Immat Gran (auto) (0.00-0.03) X10*3/uL Absolute Neuts (auto) (2.0-8.3) X10*3/uL Absolute Nucleated RBC (0.0-0.012) X10*3/uL Nucleated RBC % (auto) (0.0-0.2) /100WBC PT (10.8-13.0) SEC INR (0.9-1.1) APTT (24.1-38.0) SEC Sodium (135-145) mmol/L Potassium (3.3-5.1) mmol/l Chloride (96-108) mmol/L Carbon Dioxide (22-29) mmol/L Anion Gap (12-20) BUN (9-16) mg/dL Creatinine (0.5-1.4) mg/dL Estim Creat Clear Calc Estimated GFR Random Glucose (60-115) mg/dL Lactic Acid (0.5-2.0) mmol/L Calcium (8.4-10.2) mg/dL Magnesium (1.6-2.6) mg/dL Urine Opiates Screen POSITIVE H (Not Detect) Ur Barbiturates Screen Not Detected (Not Detect) Ur Phencyclidine Scrn Not Detected (Not Detect) Ur Amphetamines Screen Not Detected (Not Detect) U Benzodiazepines Scrn Not Detected (Not Detect) Urine Cocaine Screen POSITIVE H (Not Detect) U Marijuana (THC) Screen POSITIVE H (Not Detect) Coronavirus (PCR) (Negative) ECG Data Attestation: I personally reviewed and interpreted this ECG as follows: ECG interpretation date: 09/11/20 ECG interpretation time: 01:38 Prior ECG tracings: available for review Interpretation: Vent. Rate : 065 BPM Atrial Rate : 065 BPM P-R Int : 162 ms QRS Dur : 098 ms QT Int : 426 ms P-R-T Axes : 060 023 033 degrees QTc Int : 443 ms Normal sinus rhythm Possible Left atrial enlargement Borderline ECG When compared with ECG of 25-AUG-2020 23:15, No significant change was found Discharge Plan Discharge Clinical Impression: Discitis of thoracic region, Osteomyelitis of thoracic spine, IV drug abuse Patient Disposition: Admitted As Inpatient
[2020-09-10 23:51] VITALS: BP 107/67; PULSE 74; RESP 16; TEMP 36.9; O2SAT 98
[2020-09-11] VITALS (10 sets, daily range): BP systolic 100–149; BP diastolic 52–78; PULSE 60–84; RESP 14–20; TEMP 36.5–36.8; O2SAT 95–98
--- NOTE | 2020-09-11 00:20 | PC.NURSE ---
manpower development manager evaluation complete and patient line and labbed. medicated per emar as noted
[2020-09-11 00:21] LABS: MANUAL DIFF FLAG NO
[2020-09-11 00:22] LABS: Basophils Percent Auto 0.5 % (0-2); Eosinophils Absolute Auto 0.1 X10*3/uL (0.0-0.4); Eosinophils Percent Auto 1.4 % (0-4); Hematocrit 35.1 % (42-52); Hemoglobin 11.4 g/dl (14.0-18.0); Imm Gran Abs Auto 0.01 X10*3/uL (0.00-0.03); Imm Gran Pct Auto 0.2 % (0.0-0.4); Lymphocytes Percent Auto 46.9 % (20-40); Mean Corpuscular HGB Conc 32.5 g/dl (31.0-36.0); Mean Corpuscular Hemoglobin 27.3 pg (27.0-33.0); Mean Corpuscular Volume 84.2 fL (80-98); Monocytes Absolute Auto 0.6 X10*3/uL (0.1-1.2); Monocytes Percent Auto 9.4 % (2-11); Neutrophils Absolute Auto 2.6 X10*3/uL (2.0-8.3); Neutrophils Percent Auto 41.6 % (45-73); Platelet Count 201 X10*3/uL (160-400); Red Blood Count 4.17 X10*6/uL (4.60-5.80); Red Cell Distribution Width 13.7 % (11.0-16.0); White Blood Count 6.3 X10*3/uL (4.8-10.8)
[2020-09-11 00:27] LABS: Prothrombin Time 11.3 SEC (10.8-13.0)
[2020-09-11 00:30] LABS: Partial Thromboplastin Time 36.1 SEC (24.1-38.0)
[2020-09-11] MEDS: Piperacillin Sodium/Tazobactam 3.375 GM in 0.9 % Sodium Chloride 50 ML IV ×4 (00:30→17:55)
[2020-09-11 00:41] LABS: Anion Gap 11 (12-20); Blood Urea Nitrogen 24 mg/dL (9-16); Calcium 8.7 mg/dL (8.4-10.2); Carbon Dioxide 28 mmol/L (22-29); Chloride 100 mmol/L (96-108); Creatinine Clr Calc Pharmacy 148.8; Estimated Glomerular Filt Rate > 60; Glucose Random 84 mg/dL (60-115); Potassium 4.9 mmol/l (3.3-5.1); Sodium 134 mmol/L (135-145)
[2020-09-11 00:47] LABS: Lactic Acid 0.4 mmol/L (0.5-2.0)
[2020-09-11 00:52] LABS: Amphetamine Screen Urine Not Detected (Not Detect); Barbiturates, Urine Not Detected (Not Detect); Benzodiazepines Screen Urine Not Detected (Not Detect); Cannabinoid Screen Urine POSITIVE (Not Detect); Cocaine Screen Urine POSITIVE (Not Detect); Opiate Screen Urine POSITIVE (Not Detect); Phencyclidine Screen Urine Not Detected (Not Detect)
--- NOTE | 2020-09-11 00:55 | CT_ITS ---
EXAMINATIONS: CT PULMONARY EMBOLISM STUDY AND CT THORACIC SPINE WITH CONTRAST CLINICAL INFORMATION: Pain with inspiration. Concern for discitis and osteomyelitis. COMPARISON: 08/26/2020. TECHNIQUE: Contiguous helical images of the chest were obtained following the administration of IV contrast. Multiplanar reconstructions were performed. MIPS were obtained and reviewed. Contiguous helical images of the thoracic spine were obtained with IV contrast. Multiplanar reconstructions were performed. DLP: 290 mGy-cm. CONTRAST: 85 mL of Omnipaque 350 were administered without incident. FINDINGS: The heart is of normal size. There is no pericardial effusion. The great vessels are unremarkable. Specifically, there is no pulmonary arterial filling defect. There is no CT evidence for pulmonary embolism. Disc height loss at T6/T7 has progressed since the prior exam. As well, cortical destruction on either side of the disc space has progressed. There is increased lucency throughout the inferior aspect of the body of T6 as well as the superior aspect of the body of T7. Soft tissue prominence about the T6 and T7 vertebral bodies has progressed since the prior exam. No drainable fluid collections are identified. Please note that the examination is not optimized for the evaluation of lesions within the spinal canal, though none are demonstrable on CT. Review of lung windows demonstrates that there are neither pleural effusions nor pneumothoraces. There are no consolidations. There are no pulmonary parenchymal nodules. Limited evaluation of the upper abdomen demonstrates that the liver is of normal size and attenuation without focal lesions. Normal adrenal glands are identified. CT/CT angio chest PE protocol IMPRESSION: No CT evidence for pulmonary embolism. Interval progression of disc height loss at T6/T7 with further bony destruction within the bodies of T6 and T7 wine sales representative of discitis/osteomyelitis. There has been an increase in soft tissue prominence about the bodies of T6 and T7 suggestive of phlegmonous change without demonstrable drainable fluid collections. No demonstrable extension into the spinal canal, though please note that CT is not the optimal modality to evaluate for spinal extension. Recommendation is for correlation with MRI of the thoracic spine with contrast. Automated exposure control (Care Dose) Adjustment of the mA and/or kv according to patient size (this includes techniques or standardized protocols for targeted exams where dose is matched to indication / reason for exam; i.e. extremities or head).
--- NOTE | 2020-09-11 00:55 | CT_ITS ---
EXAMINATIONS: CT PULMONARY EMBOLISM STUDY AND CT THORACIC SPINE WITH CONTRAST CLINICAL INFORMATION: Pain with inspiration. Concern for discitis and osteomyelitis. COMPARISON: 08/26/2020. TECHNIQUE: Contiguous helical images of the chest were obtained following the administration of IV contrast. Multiplanar reconstructions were performed. MIPS were obtained and reviewed. Contiguous helical images of the thoracic spine were obtained with IV contrast. Multiplanar reconstructions were performed. DLP: 290 mGy-cm. CONTRAST: 85 mL of Omnipaque 350 were administered without incident. FINDINGS: The heart is of normal size. There is no pericardial effusion. The great vessels are unremarkable. Specifically, there is no pulmonary arterial filling defect. There is no CT evidence for pulmonary embolism. Disc height loss at T6/T7 has progressed since the prior exam. As well, cortical destruction on either side of the disc space has progressed. There is increased lucency throughout the inferior aspect of the body of T6 as well as the superior aspect of the body of T7. Soft tissue prominence about the T6 and T7 vertebral bodies has progressed since the prior exam. No drainable fluid collections are identified. Please note that the examination is not optimized for the evaluation of lesions within the spinal canal, though none are demonstrable on CT. Review of lung windows demonstrates that there are neither pleural effusions nor pneumothoraces. There are no consolidations. There are no pulmonary parenchymal nodules. Limited evaluation of the upper abdomen demonstrates that the liver is of normal size and attenuation without focal lesions. Normal adrenal glands are identified. CT/CT thoracic spine w con IMPRESSION: No CT evidence for pulmonary embolism. Interval progression of disc height loss at T6/T7 with further bony destruction within the bodies of T6 and T7 premium service representative of discitis/osteomyelitis. There has been an increase in soft tissue prominence about the bodies of T6 and T7 suggestive of phlegmonous change without demonstrable drainable fluid collections. No demonstrable extension into the spinal canal, though please note that CT is not the optimal modality to evaluate for spinal extension. Recommendation is for correlation with MRI of the thoracic spine with contrast. Automated exposure control (Care Dose) Adjustment of the mA and/or kv according to patient size (this includes techniques or standardized protocols for targeted exams where dose is matched to indication / reason for exam; i.e. extremities or head).
[2020-09-11] MEDS: 0.9 % Sodium Chloride 1,000 ML 999 ML IVCONT (01:01)
--- NOTE | 2020-09-11 01:10 | PC.NURSE ---
PATIENT TAKEN TO CAT SCAN RIGHT AFTER 1ST ABX FINISHED AND SECOND 1 HUNG. 2ND ABX TO BE STARTED WHEN PATIENT RETURNS FROM CAT SCAN
[2020-09-11 01:18] LABS: SARS COV2 PCR INHOUSE NEGATIVE (Negative)
[2020-09-11] MEDS: vancomycin HCL 1,000 MG in 0.9 % Sodium Chloride 250 ML 270 MG IV (01:23)
[2020-09-11] MEDS: iohexoL 350 MG/ML 100 ML INFUS..BTL 85 ML IV (01:27)
--- NOTE | 2020-09-11 01:33 | ECG_ITS ---
Test Reason : ACUTE IV DRUG ABUSE, BASELINE Blood Pressure : / mmHG Vent. Rate : 065 BPM Atrial Rate : 065 BPM P-R Int : 162 ms QRS Dur : 098 ms QT Int : 426 ms P-R-T Axes : 060 023 033 degrees QTc Int : 443 ms Normal sinus rhythm RSR' or QR pattern in V1 suggests right ventricular conduction delay Possible Left atrial enlargement Abnormal ECG When compared with ECG of 25-AUG-2020 23:15, Left atrial enlargement is new Referred By: Lara Holbrook Electronically Signed By:EVELYN ASHLEY MD
[2020-09-11 03:51] LABS: Troponin-I High Sensitivity < 3.5 ng/L (<3.5-35.0)
--- NOTE | 2020-09-11 03:53 | PM.IMHP ---
History of Present Illness Date of Service: 09/11/20 Chief Complaint: back pain 35 y/o male who presented from home c/o back pain. Patient has a known hx of IV drug abuse including cocaine, opiates and a hx of marijuana abuse. Last month presented to us reporting that for 2 weeks was having mid back pain which on imaging showed discitis T5-T6 level. Patient was started on IV antbx but after admission was planned patient signed against medical advice. Today presented due to persistent symptoms of back pain which he reports as a sharp pain in the midback not associated with chest pain, SOB, fever, nausea, vomiting, diarrhea, urinary incontinence, bladder incontinence, weakness or decreased sensation. Blood work done showed no evidence of leukocytosis on CBC. Imaging done showed bony destruction within the bodies of T6 and T7 branch sales and service representative of discitis/osteomyelitis as well as an increase in soft tissue prominence about the bodies of T6 and T7 suggestive of phlegmonous change without demonstrable drainable fluid collections . IV antbx started in the ED and decision for admission given. Patient seen and examined at the bedside, laying down in bed in no acute distress. ROS as above otherwise negative. Physical exam unremarkable. Patient reports pain now of 02/14. PMHX: IV drug abuse, asthma, schizophrenia PSx: knee surgery Toxic habits: Multisubstance abuse, no hx of alcohol abuse or smoking tobacco Review of Systems Musculoskeletal: Musculoskeletal: Reports back pain PMFSH Medical History Asthma Functional capacity: independent ambulation Family history: reviewed and not pertinent Social History Housing: Homeless Alcohol intake: never Smoking Status: Current every day smoker Tobacco Type: Cigarette Second Hand Smoke Exposure: Yes Use of substances other than those prescribed or required for medical reasons: Yes Substance Use Type: Heroin Substance Use Frequency: Daily Last Used Substance: Just Prior to Admission Any prior treatment program specific to substance use: No Advance Directives: No service: No Meds Allergies Allergy/AdvReac Type Severity Reaction Status Date / Time No Known Allergies Allergy Verified 08/25/20 21:53 [No Known Allergies*] Home Medications Medication Instructions Recorded Confirmed Type No Known Home Meds 08/26/20 09/11/20 History Physical Exam Vital Signs and Narrative: Vital Signs: Last Vital Signs Temp 98.4 F 09/10/20 23:51 Pulse 82 09/11/20 02:00 Resp 14 09/11/20 02:00 BP 105/76 09/11/20 02:00 Pulse Ox 98 09/11/20 02:00 Body Mass Index 23.7 Const: General: cooperative, comfortable and no acute distress Orientation/consciousness: oriented to person, oriented to place, oriented to time and patient oriented x3 HENMT: Head: Yes normal to inspection Eyes: General: appearance normal, both eyes and all related structures Neck: Yes normal visual inspection Chest: Chest palpation & inspection: normal inspection of the chest Resp: Effort & Inspection: normal respiratory effort Cardio: Jugular venous distension: no JVD Rate: regular rate Rhythm: regular rhythm Heart sounds: S1 normal heart sound present and S2 normal heart sound present GI: Inspection: Yes normal to inspection Back/Spine/Pelvis: Thoracic/Lumbar Spine: thoracic spinal tenderness Skin: General skin exam: no rashes or lesions noted Neuro: General: oriented to person, oriented to place, oriented to time and patient oriented x3 Cognition (Neuro): normal cognition Motor exam (neuro): 5/5 motor strength present throughout Extrem: General: Yes normal to inspection Psych: Appearance: grossly normal Results Labs Labs: Laboratory Tests 09/11/20 09/11/20 09/11/20 00:08 00:08 00:09 WBC RBC Hgb Hct MCV MCH MCHC RDW Plt Count MPV Immature Gran % (Auto) Neut % (Auto) Lymph % (Auto) [place] % (Auto) Eos % (Auto) Baso % (Auto) Lymph # (Auto) [place] # (Auto) Eos # (Auto) Baso # (Auto) Abs Immat Gran (auto) Absolute Neuts (auto) Absolute Nucleated RBC Nucleated RBC % (auto) PT INR APTT Sodium 134 L Potassium 4.9 D Chloride 100 Carbon Dioxide 28 Anion Gap 11 L BUN 24 H D Creatinine 0.79 Estim Creat Clear Calc 148.8 Estimated GFR > 60 Random Glucose 84 Lactic Acid 0.4 L Calcium 8.7 Magnesium 2.0 Troponin I High Sens Urine Opiates Screen Ur Barbiturates Screen Ur Phencyclidine Scrn Ur Amphetamines Screen U Benzodiazepines Scrn Urine Cocaine Screen U Marijuana (THC) Screen Coronavirus (PCR) 09/11/20 09/11/20 09/11/20 00:09 00:09 00:09 WBC 6.3 RBC 4.17 L Hgb 11.4 L Hct 35.1 L MCV 84.2 MCH 27.3 MCHC 32.5 RDW 13.7 Plt Count 201 MPV 10.0 Immature Gran % (Auto) 0.2 Neut % (Auto) 41.6 L Lymph % (Auto) 46.9 H [place] % (Auto) 9.4 Eos % (Auto) 1.4 Baso % (Auto) 0.5 Lymph # (Auto) 3.0 [place] # (Auto) 0.6 Eos # (Auto) 0.1 Baso # (Auto) 0.0 Abs Immat Gran (auto) 0.01 Absolute Neuts (auto) 2.6 Absolute Nucleated RBC 0.000 Nucleated RBC % (auto) 0.0 PT 11.3 INR 1.0 APTT 36.1 Sodium Potassium Chloride Carbon Dioxide Anion Gap BUN Creatinine Estim Creat Clear Calc Estimated GFR Random Glucose Lactic Acid Calcium Magnesium Troponin I High Sens Urine Opiates Screen Ur Barbiturates Screen Ur Phencyclidine Scrn Ur Amphetamines Screen U Benzodiazepines Scrn Urine Cocaine Screen U Marijuana (THC) Screen Coronavirus (PCR) NEGATIVE 09/11/20 09/11/20 00:09 00:09 WBC RBC Hgb Hct MCV MCH MCHC RDW Plt Count MPV Immature Gran % (Auto) Neut % (Auto) Lymph % (Auto) [place] % (Auto) Eos % (Auto) Baso % (Auto) Lymph # (Auto) [place] # (Auto) Eos # (Auto) Baso # (Auto) Abs Immat Gran (auto) Absolute Neuts (auto) Absolute Nucleated RBC Nucleated RBC % (auto) PT INR APTT Sodium Potassium Chloride Carbon Dioxide Anion Gap BUN Creatinine Estim Creat Clear Calc Estimated GFR Random Glucose Lactic Acid Calcium Magnesium Troponin I High Sens < 3.5 Urine Opiates Screen POSITIVE H Ur Barbiturates Screen Not Detected Ur Phencyclidine Scrn Not Detected Ur Amphetamines Screen Not Detected U Benzodiazepines Scrn Not Detected Urine Cocaine Screen POSITIVE H U Marijuana (THC) Screen POSITIVE H Coronavirus (PCR) Assessment and Plan (1) IV drug abuse: Status: Acute (2) Discitis of thoracic region: Status: Acute Start with Vancomycin for gram positive coverage Start with Zosyn for gram neg coverage Follow Bcx Follow up 2D echo r/o endocarditis given significant hx of IVDA Infectious disease consult General surgery for evaluation of prominence that is evident on CT of T6-T7, r/o underlying abscesss
[2020-09-11] MEDS: 0.9 % Sodium Chloride 1,000 ML 100 ML IVCONT ×2 (07:03→17:56)
[2020-09-11 07:19] LABS: MANUAL DIFF FLAG NO
[2020-09-11 07:31] LABS: Basophils Percent Auto 0.4 % (0-2); Eosinophils Absolute Auto 0.1 X10*3/uL (0.0-0.4); Eosinophils Percent Auto 2.4 % (0-4); Hematocrit 34.4 % (42-52); Hemoglobin 10.8 g/dl (14.0-18.0); Imm Gran Abs Auto 0.01 X10*3/uL (0.00-0.03); Imm Gran Pct Auto 0.2 % (0.0-0.4); Lymphocytes Absolute Auto 2.5 X10*3/uL (1.2-4.9); Lymphocytes Percent Auto 49.6 % (20-40); Mean Corpuscular HGB Conc 31.4 g/dl (31.0-36.0); Mean Corpuscular Hemoglobin 26.6 pg (27.0-33.0); Mean Corpuscular Volume 84.7 fL (80-98); Mean Platelet Volume 9.7 fL (9.4-12.4); Monocytes Absolute Auto 0.6 X10*3/uL (0.1-1.2); Monocytes Percent Auto 12.2 % (2-11); Neutrophils Absolute Auto 1.8 X10*3/uL (2.0-8.3); Neutrophils Percent Auto 35.2 % (45-73); Platelet Count 184 X10*3/uL (160-400); Red Blood Count 4.06 X10*6/uL (4.60-5.80); Red Cell Distribution Width 13.8 % (11.0-16.0)
[2020-09-11 07:42] LABS: Anion Gap 11 (12-20); Blood Urea Nitrogen 15 mg/dL (9-16); Calcium 8.2 mg/dL (8.4-10.2); Carbon Dioxide 27 mmol/L (22-29); Chloride 104 mmol/L (96-108); Estimated Glomerular Filt Rate > 60; Glucose Random 85 mg/dL (60-115); Potassium 4.2 mmol/l (3.3-5.1); Sodium 138 mmol/L (135-145)
--- NOTE | 2020-09-11 09:00 | MHC.CM.PN ---
pt reports he is homeless, has no insurance. he has no family in the area that is able to help him. he reports that he is independent in his care. a ref. has been made to financial counseling to acquire insurance. 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 this remains to be determined, however if this is the case then he would need to agree to go to snf , follow tx and have insurance. pt does not want to go to group home at [facility] he would [facility] stay at [facility] or entertain other options. lastly, pt would benefit from a care team consult. dc plan is uncertain at this time. cm to cont. to follow.
[2020-09-11] MEDS: oxyCODONE HCl Immed Release 5 MG TABLET PO (10:04)
--- NOTE | 2020-09-11 10:11 | P.CONGS_ITS ---
History of Present Illness Consult details Narrative: [age] year male admitted last night because of back pain. He has no known had long history of active IV drug abuse. He had a CAT scan done in the ER showing question of an abscess or diskitis at level of T6-T7. I was therefore consulted. The patient denies any other complaints. He does state that he has had this back pain for ?a long time?. He does not seem to be very reliable with this history however. Review of Systems Constitutional: Constitutional: Denies chills and Denies fever(s) Cardiovascular: Cardiovascular: Denies chest pain, Denies dyspnea and Denies dyspnea on exertion Respiratory: Respiratory: Denies cough, Denies dyspnea and Denies dyspnea on exertion Gastrointestinal: Gastrointestinal: Denies hematochezia and Denies change in bowel habits Genitourinary: Genitourinary: Denies hematuria and Denies difficulty urinating Musculoskeletal: Musculoskeletal: Reports back pain and Denies limited range of motion Neurologic: Denies focal weakness and Denies convulsions Psychiatric: Psychiatric: Denies depression and Denies mood swings PMFSH Past Medical History Medical History Asthma Functional capacity: independent ambulation Family History Family history: reviewed and not pertinent Social History Social History Household Members: Unknown / Unable to assess Housing: Homeless Alcohol intake: never Smoking Status: Current every day smoker Tobacco Type: Cigarette Second Hand Smoke Exposure: Yes Use of substances other than those prescribed or required for medical reasons: Yes Substance Use Type: Heroin, Marijuana and Opiates Substance Use Frequency: Daily Last Used Substance: Just Prior to Admission Currently Displaying Signs/Symptoms of Drug Intoxication Withdrawal: Yes Any prior treatment program specific to substance use: No Advance Directives: No Do you have thoughts of harming others: None service: No Current occupational status: unemployed Meds Allergies Allergy/AdvReac Type Severity Reaction Status Date / Time No Known Allergies Allergy Verified 08/25/20 21:53 [No Known Allergies*] Home Medications Medication Instructions Recorded Confirmed Type No Known Home Meds 08/26/20 09/11/20 History Physical Exam Vital Signs: Vital Signs: Vital Signs Temp Pulse Resp BP Pulse Ox 09/11/20 08:00 97.7 F 76 18 104/55 L 95 09/11/20 05:52 98.3 F 79 20 118/70 98 09/11/20 04:00 15 09/11/20 02:00 82 14 105/76 98 09/11/20 01:33 84 15 100/52 L 98 09/10/20 23:51 98.4 F 74 16 107/67 98 09/10/20 22:34 98.2 F 98 16 128/71 97 Body Mass Index 23.7 Const: General: comfortable and no acute distress Orientation/consci ousness: patient oriented x3 Neck: Neck: Yes no lymphadenopathy Resp: Auscultation: clear to auscultation bilaterally Cardio: Rhythm: regular rhythm GI: Palpation (GI): Soft to palpation, nontender and no guarding Back/Spine/Pelvis: Other: Question of tenderness on the mid back Neuro: General: patient oriented x3 Results Labs Result diagrams: 09/11/20 07:01 09/11/20 07:01 Labs: Abnormal lab results 09/11/20 09/11/20 09/11/20 Range/Units 00:08 00:08 00:09 RBC 4.17 L (4.60-5.80) X10*6/uL Hgb 11.4 L (14.0-18.0) g/dl Hct 35.1 L (42-52) % MCH (27.0-33.0) pg Neut % (Auto) 41.6 L (45-73) % Lymph % (Auto) 46.9 H (20-40) % [place] % (Auto) (2-11) % Absolute Neuts (auto) (2.0-8.3) X10*3/uL Sodium 134 L (135-145) mmol/L Anion Gap 11 L (12-20) BUN 24 H D (9-16) mg/dL Lactic Acid 0.4 L (0.5-2.0) mmol/L Calcium (8.4-10.2) mg/dL Urine Opiates Screen (Not Detect) Urine Cocaine Screen (Not Detect) U Marijuana (THC) Screen (Not Detect) 09/11/20 09/11/20 09/11/20 Range/Units 00:09 07:01 07:01 RBC 4.06 L (4.60-5.80) X10*6/uL Hgb 10.8 L (14.0-18.0) g/dl Hct 34.4 L (42-52) % MCH 26.6 L (27.0-33.0) pg Neut % (Auto) 35.2 L (45-73) % Lymph % (Auto) 49.6 H (20-40) % [place] % (Auto) 12.2 H (2-11) % Absolute Neuts (auto) 1.8 L (2.0-8.3) X10*3/uL Sodium (135-145) mmol/L Anion Gap 11 L (12-20) BUN (9-16) mg/dL Lactic Acid (0.5-2.0) mmol/L Calcium 8.2 L (8.4-10.2) mg/dL Urine Opiates Screen POSITIVE H (Not Detect) Urine Cocaine Screen POSITIVE H (Not Detect) U Marijuana (THC) Screen POSITIVE H (Not Detect) Short CBC 09/11/20 09/11/20 Range/Units 00:09 07:01 WBC 6.3 5.0 (4.8-10.8) X10*3/uL Hgb 11.4 L 10.8 L (14.0-18.0) g/dl Hct 35.1 L 34.4 L (42-52) % Plt Count 201 184 (160-400) X10*3/uL BMP 09/11/20 09/11/20 00:08 07:01 Sodium 134 L 138 Potassium 4.9 D 4.2 Chloride 100 104 Carbon Dioxide 28 27 BUN 24 H D 15 Creatinine 0.79 0.73 Calcium 8.7 8.2 L All other labs normal. Assessment and Plan (1) Osteomyelitis of thoracic spine: Status: Acute His CAT scan shows inflammatory changes on T6-T7, consistent with diskitis versus osteomyelitis, along with some phlegmonous changes with the possible abscess. This is likely hematogenous in etiology from his IV drug abuse. I would recommend consultation with thoracic surgeon or neurosurgeon with regards to this at this time. I have discussed above with the hospitalist service. He has been started already on empiric IV antibiotics.
--- NOTE | 2020-09-11 10:40 | MHC.CARE ---
Addiction Consult Service note: Patient is a 35 year old [place] Islander speaking male known to this insurance underwriter sales from a previous admission. Patient left AMA on his last admission. Patient reports he left due to anxiety. Patient reports he is homeless and when he feels anxious he uses dope and reports no additional coping strategies. Patient reports he is trying to remain here for treatment. Patient encouraged to try and distract himself by talking to friends or watching TV. Patient encouraged to try deep breathing if he begins to feel anxious and to inform the nurse if he is having anxiety. Patient is currently uninsured however has been referred to financial counseling. Patient reports an interest in getting on Suboxone when he is able to. This insurance underwriter sales will check in with patient tomorrow.
--- NOTE | 2020-09-11 14:37 | MHC.CM.PN ---
pt now has [employer] care plus , policy # [id number], thanks to fin. rhodes at [facility] who will also be changing pt to [facility] and a pcp at [address] [place] [address] carla garcia per his request. cm to cont. to follow.
--- NOTE | 2020-09-11 16:11 | P.CNPS_ITS ---
History of Present Illness Chief Complaint: Back pain Reason for Consult: Addiction Consult Requesting physician: Clive Flores Discussed with referring provider: Yes Sources of Information: patient interviewed and chart reviewed HPI Narrative: Pt is a 35 year old male currently medically admitted with discitis/osteo Recently hospitalized for the same reson and discharged AMA Presented again with same complaint and consult requested to address OUD. Pt seen in room 370. Awake, alert. Engaged in interview, yet providing minimal information. Somewhat odd affect as he smiling during different points in interview where it was not necessarily appropriate. There is mention of history of schizophrenia, but unclear if this is accurate. Pt reporting he is currently using about 4 bundles of heroin IV QD along with cocaine. Last use reported as being yesterday morning. He reports he has been using for about 10 years and denies any history of treatment of any kind. He has used suboxone on the street and found it was effective in managing his sx, but has also had a negative experience with it where it precipitated withdrawal Pt reports he is currently living on the [place] of [place]. Family is in [place], and he has some contact with them. He reports desire to start MAT during this admission, and open regarding challenge/fear of withdrawal and how it will be managed. During interview, pt did not appear to be in withdrawal and denied withdrawal sx. Review of Systems Gastrointestinal: Denies diarrhea and Denies nausea Psychiatric: Reports anxiety and Reports hopelessness [facility] Medical History Asthma Diagnostics Vital Signs (24Hr): Vital Signs - 24 hr 09/10/20 22:34 09/10/20 23:51 09/11/20 01:33 Temperature 98.2 F 98.4 F Pulse Rate 98 74 84 Respiratory Rate 16 16 15 Blood Pressure 128/71 107/67 100/52 L Pulse Oximetry 97 98 98 09/11/20 02:00 09/11/20 04:00 09/11/20 05:52 Temperature 98.3 F Pulse Rate 82 79 Respiratory Rate 14 15 20 Blood Pressure 105/76 118/70 Pulse Oximetry 98 98 09/11/20 08:00 09/11/20 12:39 09/11/20 15:29 Temperature 97.7 F 98.2 F 97.8 F Pulse Rate 76 64 65 Respiratory Rate 18 18 18 Blood Pressure 104/55 L 132/74 116/71 Pulse Oximetry 95 98 98 Body Mass Index 23.7 Labs Results: 09/11/20 07:01 09/11/20 07:01 Labs: Laboratory Results - last 48 hr 09/11/20 09/11/20 09/11/20 00:08 00:08 00:09 WBC RBC Hgb Hct MCV MCH MCHC RDW Plt Count MPV Immature Gran % (Auto) Neut % (Auto) Lymph % (Auto) [place] % (Auto) Eos % (Auto) Baso % (Auto) Lymph # (Auto) [place] # (Auto) Eos # (Auto) Baso # (Auto) Abs Immat Gran (auto) Absolute Neuts (auto) Absolute Nucleated RBC Nucleated RBC % (auto) PT INR APTT Sodium 134 L Potassium 4.9 D Chloride 100 Carbon Dioxide 28 Anion Gap 11 L BUN 24 H D Creatinine 0.79 Estim Creat Clear Calc 148.8 Estimated GFR > 60 Random Glucose 84 Lactic Acid 0.4 L Calcium 8.7 Magnesium 2.0 Troponin I High Sens Urine Opiates Screen Ur Barbiturates Screen Ur Phencyclidine Scrn Ur Amphetamines Screen U Benzodiazepines Scrn Urine Cocaine Screen U Marijuana (THC) Screen Coronavirus (PCR) 09/11/20 09/11/20 09/11/20 00:09 00:09 00:09 WBC 6.3 RBC 4.17 L Hgb 11.4 L Hct 35.1 L MCV 84.2 MCH 27.3 MCHC 32.5 RDW 13.7 Plt Count 201 MPV 10.0 Immature Gran % (Auto) 0.2 Neut % (Auto) 41.6 L Lymph % (Auto) 46.9 H [place] % (Auto) 9.4 Eos % (Auto) 1.4 Baso % (Auto) 0.5 Lymph # (Auto) 3.0 [place] # (Auto) 0.6 Eos # (Auto) 0.1 Baso # (Auto) 0.0 Abs Immat Gran (auto) 0.01 Absolute Neuts (auto) 2.6 Absolute Nucleated RBC 0.000 Nucleated RBC % (auto) 0.0 PT 11.3 INR 1.0 APTT 36.1 Sodium Potassium Chloride Carbon Dioxide Anion Gap BUN Creatinine Estim Creat Clear Calc Estimated GFR Random Glucose Lactic Acid Calcium Magnesium Troponin I High Sens Urine Opiates Screen Ur Barbiturates Screen Ur Phencyclidine Scrn Ur Amphetamines Screen U Benzodiazepines Scrn Urine Cocaine Screen U Marijuana (THC) Screen Coronavirus (PCR) NEGATIVE 09/11/20 09/11/20 09/11/20 00:09 00:09 07:01 WBC 5.0 RBC 4.06 L Hgb 10.8 L Hct 34.4 L MCV 84.7 MCH 26.6 L MCHC 31.4 RDW 13.8 Plt Count 184 MPV 9.7 Immature Gran % (Auto) 0.2 Neut % (Auto) 35.2 L Lymph % (Auto) 49.6 H [place] % (Auto) 12.2 H Eos % (Auto) 2.4 Baso % (Auto) 0.4 Lymph # (Auto) 2.5 [place] # (Auto) 0.6 Eos # (Auto) 0.1 Baso # (Auto) 0.0 Abs Immat Gran (auto) 0.01 Absolute Neuts (auto) 1.8 L Absolute Nucleated RBC 0.000 Nucleated RBC % (auto) 0.0 PT INR APTT Sodium Potassium Chloride Carbon Dioxide Anion Gap BUN Creatinine Estim Creat Clear Calc Estimated GFR Random Glucose Lactic Acid Calcium Magnesium Troponin I High Sens < 3.5 Urine Opiates Screen POSITIVE H Ur Barbiturates Screen Not Detected Ur Phencyclidine Scrn Not Detected Ur Amphetamines Screen Not Detected U Benzodiazepines Scrn Not Detected Urine Cocaine Screen POSITIVE H U Marijuana (THC) Screen POSITIVE H Coronavirus (PCR) 09/11/20 07:01 WBC RBC Hgb Hct MCV MCH MCHC RDW Plt Count MPV Immature Gran % (Auto) Neut % (Auto) Lymph % (Auto) [place] % (Auto) Eos % (Auto) Baso % (Auto) Lymph # (Auto) [place] # (Auto) Eos # (Auto) Baso # (Auto) Abs Immat Gran (auto) Absolute Neuts (auto) Absolute Nucleated RBC Nucleated RBC % (auto) PT INR APTT Sodium 138 Potassium 4.2 Chloride 104 Carbon Dioxide 27 Anion Gap 11 L BUN 15 Creatinine 0.73 Estim Creat Clear Calc 161.0 Estimated GFR > 60 Random Glucose 85 Lactic Acid Calcium 8.2 L Magnesium Troponin I High Sens Urine Opiates Screen Ur Barbiturates Screen Ur Phencyclidine Scrn Ur Amphetamines Screen U Benzodiazepines Scrn Urine Cocaine Screen U Marijuana (THC) Screen Coronavirus (PCR) Imaging Radiology Impressions: ITS Impressions Chest CTA 11/05/20 00:55 IMPRESSION: No CT evidence for pulmonary embolism. Interval progression of disc height loss at T6/T7 with further bony destruction within the bodies of T6 and T7 entry level account representative of discitis/osteomyelitis. There has been an increase in soft tissue prominence about the bodies of T6 and T7 suggestive of phlegmonous change without demonstrable drainable fluid collections. No demonstrable extension into the spinal canal, though please note that CT is not the optimal modality to evaluate for spinal extension. Recommendation is for correlation with MRI of the thoracic spine with contrast. Automated exposure control (Care Dose) Adjustment of the mA and/or kv according to patient size (this includes techniques or standardized protocols for targeted exams where dose is matched to indication / reason for exam; i.e. extremities or head). Thoracic Spine CT 09/11/20 00:55 IMPRESSION: No CT evidence for pulmonary embolism. Interval progression of disc height loss at T6/T7 with further bony destruction within the bodies of T6 and T7 entry level account representative of discitis/osteomyelitis. There has been an increase in soft tissue prominence about the bodies of T6 and T7 suggestive of phlegmonous change without demonstrable drainable fluid collections. No demonstrable extension into the spinal canal, though please note that CT is not the optimal modality to evaluate for spinal extension. Recommendation is for correlation with MRI of the thoracic spine with contrast. Automated exposure control (Care Dose) Adjustment of the mA and/or kv according to patient size (this includes techniques or standardized protocols for targeted exams where dose is matched to indication / reason for exam; i.e. extremities or head). Mental Status Exam Mental Status Exam Patient Appearance: Disheveled, Unkempt and Malodorous Patient Orientation: Person, Place, Time and Situation Level of Consciousness: Awake, Appropriate and Alert Patient Behavior: Appropriate and Passive Mood Description: Calm Affect Description: Calm Speech Pattern: Clear Thought Process: Goal Oriented Thought Content: positive for [place] Judgement: Fair Medications Medications Current Medications Generic Name Dose Route Start Last Admin Trade Name Freq PRN Reason Stop Dose Admin Heparin Sodium (Porcine) 5,000 unit 09/11/20 07:00 09/11/20 15:04 Heparin Sodium,Porcine 5,000 Unit/Ml Vial SUBCUT Not Given Q8H GEMA Sodium Chloride 1,000 mls @ 100 mls/hr 09/11/20 06:07 09/11/20 07:03 Ns IVCONT 100 mls/hr .Q10H GEMA Administration Piperacillin Sod/Tazobactam 50 mls @ 100 mls/hr 09/11/20 07:00 09/11/20 14:16 Sod 3.375 gm/ Sodium Chloride IV Infused Q6H GEMA Infusion Vancomycin HCl 750 mg/ 275 mls @ 183.333 mls/hr 09/11/20 13:00 09/11/20 14:17 Vancomycin HCl 500 mg/ Sodium IV 183 mls/hr Chloride Q12H GEMA Administration Lorazepam 1 mg 09/11/20 16:09 Lorazepam 1 Mg Tablet PO Q6H PRN anxiety/restlessness Oxycodone HCl 5 mg 09/11/20 07:21 09/11/20 10:04 Oxycodone Hcl Immed Release 5 Mg Tablet PO 5 mg Q4H PRN Administration Pain, Severe (Pain Scale 7-10) Sodium Chloride 3 ml 09/11/20 08:00 09/11/20 07:46 0.9 % Sodium Chloride Flush 3 Ml Syringe IVFLUSH Not Given QSHIFT [facility] Allergies Allergies Allergy/AdvReac Type Severity Reaction Status Date / Time No Known Allergies Allergy Verified 08/25/20 21:53 [No Known Allergies*] Assessment & Plan Assessment & Plan (1) Opioid use disorder: Status: Acute Code(s): F11.99 - Opioid use, unspecified with unspecified opioid-induced disorder Recommendations: * Monitor COWS * If patient is taking oxycodone to manage pain, then we can hold on suboxone induction until that is finished * Lorazepam and Clonidine ordered PRN to address anxiety and restlessness associated with opioid withdrawal * Will follow up in AM --plan to assess BH history as well Greater than 50% of the session was spent on counseling and/or coordination of care
[2020-09-12] MEDS: Piperacillin Sodium/Tazobactam 3.375 GM in 0.9 % Sodium Chloride 50 ML IV ×2 (00:22→06:48)
[2020-09-12] MEDS: 0.9 % Sodium Chloride Flush 3 ML SYRINGE IVFLUSH (00:23)
[2020-09-12] MEDS: 0.9 % Sodium Chloride 1,000 ML 100 ML IVCONT (04:31)
[2020-09-12 07:08] VITALS: BP 145/76; PULSE 53; RESP 19; TEMP 37.3; O2SAT 99
--- NOTE | 2020-09-12 08:50 | HO.PM.IMPN ---
Subjective Subjective Date of Service: 09/12/20 Interval History: Seen in f/u for diskitis / osteomyelitis of the spine. Pain is controlled. He reports no drug logical symptom. Review of Systems Gen: no fever Neuro: No urinary or stool incontinence. No weakness in the legs. All. No numbness. Physical Exam Vital Signs: Vital Signs: Last Vital Signs Temp 99.2 F 09/12/20 07:08 Pulse 53 09/12/20 07:08 Resp 19 09/12/20 07:08 BP 145/76 H 09/12/20 07:08 Pulse Ox 99 09/12/20 07:08 Body Mass Index 23.7 General: AO X 3, no acute distress Resp: CTA bilateral CVS: S1,S2,RRR GI: +BS, NT, no distention Skin: No rash Neuro: motor grossly intact, no numbness, Psych: appropriate affect Objective Data Current Medications Generic Name Dose Route Start Last Admin Trade Name Freq PRN Reason Stop Dose Admin Clonidine HCl 0.1 mg 09/11/20 16:09 Clonidine Hcl 0.1 Mg Tablet PO TID PRN Opiate Withdrawal Protocol Heparin Sodium (Porcine) 5,000 unit 09/11/20 07:00 09/12/20 06:49 Heparin Sodium,Porcine 5,000 Unit/Ml Vial SUBCUT Not Given Q8H GEMA Sodium Chloride 1,000 mls @ 100 mls/hr 09/11/20 06:07 09/12/20 04:31 Ns IVCONT 100 mls/hr .Q10H GEMA Administration Piperacillin Sod/Tazobactam 50 mls @ 100 mls/hr 09/11/20 07:00 09/12/20 07:28 Sod 3.375 gm/ Sodium Chloride IV Infused Q6H GEMA Infusion Vancomycin HCl 750 mg/ 275 mls @ 183.333 mls/hr 09/11/20 13:00 09/12/20 02:50 Vancomycin HCl 500 mg/ Sodium IV Infused Chloride Q12H GEMA Infusion Lorazepam 1 mg 09/11/20 16:09 Lorazepam 1 Mg Tablet PO Q6H PRN anxiety/restlessness Oxycodone HCl 5 mg 09/11/20 07:21 09/11/20 10:04 Oxycodone Hcl Immed Release 5 Mg Tablet PO 5 mg Q4H PRN Administration Pain, Severe (Pain Scale 7-10) Sodium Chloride 3 ml 09/11/20 08:00 09/12/20 00:23 0.9 % Sodium Chloride Flush 3 Ml Syringe IVFLUSH 3 ml QSHIFT GEMA Administration Labs CBC & Chem 7: 09/11/20 07:01 09/11/20 07:01 Microbiology Microbiology Results: Microbiology 09/11/20 00:08 Blood - Venous Blood Culture - Preliminary No growth after 24 hours. 09/11/20 00:08 Blood - Venous Blood Culture - Preliminary No growth after 24 hours. Assessment and Plan (1) Discitis of thoracic region: Status: Acute (2) Osteomyelitis of thoracic spine: Status: Acute (3) IV drug abuse: Status: Acute (4) Opioid use disorder: Status: Acute Assessment and Plan: 35-year-old male with opiate dependency and recent history of osteomyelitis/ diskitis of the thoracic spine and had left AMA without treatment and presenting yet again with pain and is admitted for IV antibiotics treatment and is willing to stay this time and even go for long-term antibiotic if indicated Diskitis/ osteomyelitis of the thoracic spine--blood cultures thus far negative Continue Vanco and Zosyn ID consult Not showing any neurological symptoms opiate dependence--Oxycodone for pain, Ativan and clonidine for anxiety. Addiction service following and will consider Suboxone in the future
--- NOTE | 2020-09-12 09:53 | PM.DS ---
DS: Providers Provider Date of admission: 09/11/20 04:00 Primary care physician: Unknown Physician Consults: 09/11/20 06:07 Consult to General Surgery Routine Consulting Provider: [facility] [place] [facility] Reason for consultation: discitis r/o underlying abscess Has provider been notified: No Consult to Physician Routine Consulting Provider: Carla Melo Reason for consultation: back pain Has provider been notified: No DS: Diagnosis Discharge Diagnosis (1) Discitis of thoracic region: Status: Acute (2) Osteomyelitis of thoracic spine: Status: Acute (3) IV drug abuse: Status: Acute (4) Opioid use disorder: Status: Acute DS: Summary Hospital Course Hospital Course: 35-year-old male with history of intravenous drug abuse opiate dependence who had previously been diagnosed with osteomyelitis of the spine did/ diskitis in the thoracic region and had been advised to have IV antibiotics left AMA on August 27. he returned this time and wanted to be treated. However and he has been on IV antibiotics with vancomycin and Zosyn and Infectious Disease consultation has been requested. This morning the patient has elected that he wants to leave against medical advise because there is a definite family specifically his mother was at the bedside stated that he is on to that he is very close to has past and they needed to attend services. His mother who happens to be a nurse and understand the risk of not been properly treated with IV antibiotics for this osteomyelitis unequivocally stated that he eats she will brought to bring him to a hospital in [place] as soon as a day reached and either today or tomorrow so that he can be treated for the IV antibiotics and they do take patient does take responsibility for leaving AMA and therefore the risk of his condition worsening and even for the possibility . Unfortunately I am not able to arrange for IV antibiotics in the interim but strongly advice is that he proceed with the per plan of checking in to a hospital in [place] as soon as today are tomorrow as they have stated. Of note blood culture cam back the next day 09/13/20 with gram positive cocci 2/2. I try to contact patient but listed number and left message for Mica Erickson (Parent) listed in our system as electrical contacts adjuster Time Spent with Patient Time attestation: Total time spent providing and/or coordinating discharge services: Physical Exam Vital Signs: Vital Signs: Last Vital Signs Temp 99.2 F 09/12/20 07:08 Pulse 53 09/12/20 07:08 Resp 19 09/12/20 07:08 BP 145/76 H 09/12/20 07:08 Pulse Ox 99 09/12/20 07:08 Body Mass Index 23.7 General: AO X 3, no acute distress Resp: CTA bilateral CVS: S1,S2,RRR GI: +BS, NT, no distention Skin: No rash Neuro: motor grossly intact, no numbness, Psych: appropriate affect DS: Data Data Completed and Pending Labs on day of discharge: 09/10/20 23:38 Lactic Acid Stat Magnesium Stat 09/10/20 23:41 Basic Metabolic Panel Stat Complete Blood Count Auto Diff Stat Partial Thromboplastin Time Stat Prothrombin Time INR Stat Piperacillin Sodium/Tazobactam [Zosyn] 3.375 gm 0.9 % Sodium Chloride [Ns] 50 ml IV ONCE vancomycin HCL 1,000 mg 0.9 % Sodium Chloride [Ns] 250 ml IV ONCE 09/10/20 23:44 Drug Screen Urine Stat SARS COV2 PCR INHOUSE Stat 09/11/20 00:09 Troponin-I High Sensitivity Stat 09/11/20 00:19 Piperacillin Sodium/Tazobactam [Zosyn] 3.375 gm IV .STK-MED ONE 09/11/20 00:54 vancomycin HCL 1,000 mg .ROUTE .STK-MED ONE 09/11/20 00:55 CT angio chest PE protocol Stat CT thoracic spine w con Stat 09/11/20 01:00 0.9 % Sodium Chloride [Ns] 1,000 ml IVCONT 999 mls/hr 09/11/20 01:26 iohexoL 350 MG/ML [Omnipaque 350 MG/ML] 85 ml IV ONCE ONE 09/11/20 01:33 ECG 12 lead EKG Stat EKG Documentation DIRECTED 09/11/20 03:54 Transfer Order Routine 09/11/20 07:01 Basic Metabolic Panel Routine Complete Blood Count Auto Diff Routine 09/11/20 07:34 Piperacillin Sodium/Tazobactam [Zosyn] 3.375 gm IV .STK-MED ONE 09/11/20 12:37 Piperacillin Sodium/Tazobactam [Zosyn] 3.375 gm IV .STK-MED ONE 09/11/20 17:48 Piperacillin Sodium/Tazobactam [Zosyn] 3.375 gm IV .STK-MED ONE 09/12/20 00:16 Piperacillin Sodium/Tazobactam [Zosyn] 3.375 gm IV .STK-MED ONE 09/12/20 01:01 vancomycin HCL 500 mg IV .STK-MED ONE vancomycin HCL 750 mg IV .STK-MED ONE 09/12/20 06:44 Piperacillin Sodium/Tazobactam [Zosyn] 3.375 gm IV .STK-MED ONE Laboratory Last Values WBC 5.0 X10*3/uL (4.8-10.8) 09/11/20 07: RBC 4.06 X10*6/uL (4.60-5.80) L 09/11/20 07:01 Hgb 10.8 g/dl (14.0-18.0) L 09/11/20 07:01 Hct 34.4 % (42-52) L 09/11/20 07: MCV 84.7 fL (80-98) 09/11/20 07:01 MCH 26.6 pg (27.0-33.0) L 09/11/20 07: MCHC 31.4 g/dl (31.0-36.0) 09/11/20 07: RDW 13.8 % (11.0-16.0) 09/11/20 07:01 Plt Count 184 X10*3/uL (160-400) 09/11/20 07:01 MPV 9.7 fL (9.4-12.4) 09/11/20 07:01 Immature Gran % (Auto) 0.2 % (0.0-0.4) 09/11/20 07:01 Neut % (Auto) 35.2 % (45-73) L 09/11/20 07: Lymph % (Auto) 49.6 % (20-40) H 09/11/20 07: [place] % (Auto) 12.2 % (2-11) H 09/11/20 07:01 Eos % (Auto) 2.4 % (0-4) 09/11/20 07:01 Baso % (Auto) 0.4 % (0-2) 09/11/20 07: Lymph # (Auto) 2.5 X10*3/uL (1.2-4.9) 09/11/20 07:01 [place] # (Auto) 0.6 X10*3/uL (0.1-1.2) 09/11/20 07:01 Eos # (Auto) 0.1 X10*3/uL (0.0-0.4) 09/11/20 07:01 Baso # (Auto) 0.0 X10*3/uL (0.0-0.2) 09/11/20 07:01 Abs Immat Gran (auto) 0.01 X10*3/uL (0.00-0.03) 09/11/20 07:01 Absolute Neuts (auto) 1.8 X10*3/uL (2.0-8.3) L 09/11/20 07:01 Absolute Nucleated RBC 0.000 X10*3/uL (0.0-0.012) 09/11/20 07:01 Nucleated RBC % (auto) 0.0 /100WBC (0.0-0.2) 09/11/20 07:01 PT 11.3 SEC (10.8-13.0) 09/11/20 00:09 INR 1.0 (0.9-1.1) 09/11/20 00:09 APTT 36.1 SEC (24.1-38.0) 09/11/20 00:09 Sodium 138 mmol/L (135-145) 09/11/20 07:01 Potassium 4.2 mmol/l (3.3-5.1) 09/11/20 07:01 Chloride 104 mmol/L (96-108) 09/11/20 07:01 Carbon Dioxide 27 mmol/L (22-29) 09/11/20 07:01 Anion Gap 11 (12-20) L 09/11/20 07:01 BUN 15 mg/dL (9-16) 09/11/20 07:01 Creatinine 0.73 mg/dL (0.5-1.4) 09/11/20 07:01 Estim Creat Clear Calc 161.0 09/11/20 07:01 Estimated GFR > 60 09/11/20 07:01 Random Glucose 85 mg/dL (60-115) 09/11/20 07:01 Lactic Acid 0.4 mmol/L (0.5-2.0) L 09/11/20 00:08 Calcium 8.2 mg/dL (8.4-10.2) L 09/11/20 07:01 Magnesium 2.0 mg/dL (1.6-2.6) 09/11/20 00:09 Troponin I High Sens < 3.5 ng/L (<3.5-35.0) 09/11/20 00:09 Urine Opiates Screen POSITIVE (Not Detect) H 09/11/20 00:09 Ur Barbiturates Screen Not Detected (Not Detect) 09/11/20 00:09 Ur Phencyclidine Scrn Not Detected (Not Detect) 09/11/20 00:09 Ur Amphetamines Screen Not Detected (Not Detect) 09/11/20 00:09 U Benzodiazepines Scrn Not Detected (Not Detect) 09/11/20 00:09 Urine Cocaine Screen POSITIVE (Not Detect) H 09/11/20 00:09 U Marijuana (THC) Screen POSITIVE (Not Detect) H 09/11/20 00:09 Coronavirus (PCR) NEGATIVE (Negative) 09/11/20 00:09 Preliminary micro results at discharge 09/11/20 00:08 Blood Culture - Preliminary Blood - Venous No growth after 24 hours. 09/11/20 00:08 Blood Culture - Preliminary Blood - Venous No growth after 24 hours. Discharge Plan Discharge Patient Disposition: Left Against Medical Advice Referrals: Physician,Unknown [Primary Care Provider] - Discharge Medications: No Action No Known Home Meds RF: 0 Discharge Orders: Discharge Order (Routine); Ordered 09/12/20 Ordered By: Clive Flores Discharge Date/Time: 09/12/20 10:11 Care Plan Goals: appropriate treatment of osteomyelitis of the spine Health Concerns: Full blown sepsis from osteomylitis Plan of Treatment: You are levaing agains medical advise understanding that your condition is very serious and if not treated appropriately with IV antibiotics under supervision of providers that you can be in serious trouble and even . Now your mom who is a nurse and at the bedside says she will check you into a hopsital in [place] later today or tomorrow and I strongly encouraage this.
--- NOTE | 2020-09-12 12:39 | PC.NURSE ---
pATIENTS MOTHER CAME FOR A VISIT THIS MORNING,CRYING,NOTIFIED DANIEL THAT HER SISTER/HIS AOUT LAST NIGHT.PATIENT DECIDED TO LEAVE AMA TO SUPPORT HIS FAMILY.DR PEARSON NOTIFIED AND AT BEDSIDE INFORMINF ATIENT OF HIGH RISK OF LEAVING .PATIENT IS ALERT AND ORIENTED,AWARE OF RISKS OF LEAVING,IV OUT,AMA SIGNED.
== END 2020-09-12 10:11 | disposition left against medical advice (07) | DRG 344 ==
LOC: HO.ED 09-11 01:40 → HO.S3 09-11 04:36
PROVIDERS: Nurse Practitioner Family; Admitting Provider Internal Medicine; Emergency Provider Internal Medicine; Visit Provider Internal Medicine
DX: M46.24 Osteomyelitis of vertebra, thoracic region (principal); M46.44 Discitis, unspecified, thoracic region; F11.20 Opioid dependence, uncomplicated; F17.210 Nicotine dependence, cigarettes, uncomplicated; Z20.828 Contact with and (suspected) exposure to other viral communicable diseases; Z71.6 Tobacco abuse counseling; Z59.0 Homelessness
CPT/HCPCS: 36415; 71275; 72129; 80048; 80307; 83605; 83735; 84484; 85025; 85610; 85730; 87040; 87077; 87147; 87185; 87186; 93005; 96361; 96365; 96367; 99285; J2543; J3370; Q9967; U0003